=== PATIENT | female | born 2005 | race Caucasian/White ===

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

== ENCOUNTER 2025-03-16 14:10 | Outpatient (OUT) | payer BC, SELFPAY ==
--- OUTSIDE RECORDS SUMMARY | 2024-08-25 05:35 | XMS_ITS ---
Author Organization [facility] in [place] Address [address] [place] [address] Care Team Providers Care Forest Resource Specialist Name Role Phone Siobhan Louis Primary Care Provider REASON FOR VISIT Mail order scripts Medications Medication SIG (Take, Route, Frequency, Duration) Notes Start Date End Date Status Levothyroxine Sodium 50 MCG TAKE 1 TABLE T BY MOUTH EVERY DAY IN THE MORNING ON EMPTY STOMACH FOR 30 DAYS Orally Once a day for 90 days Active Venlafaxine HCl 37.5 MG TAKE 1 TABLET BY MOUTH EVERY DAY WITH FOOD for 90 days Active hydrOXYzine Pamoate 25 MG 1 capsule as n eeded Orally Twice a day for 90 days Active Encounters Encounter Location Date Provider Diagnosis [facility] [address] [place] [address] 08/25/2024 Siobhan Louis Anxiety disorder, unspecified F41.9 and Hypothyroid E03.9 Assessments Encounter Date Diagnosis (ICD Code) Assessment Notes Treatment Notes Treatment Clinical Notes Section Notes 08/25/2024 Anxiety disorder, unspecified (ICD-10 - F41.9) 08/25/2024 Hypothyroid (ICD-10 - E03.9) Plan Of Treatment Medication Medication Name Sig Start Date Stop Date Notes Levothyroxine Sodium 50 MCG TAKE 1 TABLE T BY MOUTH EVERY DAY IN THE MORNING ON EMPTY STOMACH FOR 30 DAYS Orally Once a day for 90 days Venlafaxine HCl 37.5 MG TAKE 1 TABLET BY MOUTH EVERY DAY WITH FOOD for 90 days hydrOXYzine Pamoate 25 MG 1 capsule as n eeded Orally Twice a day for 90 days Progress Notes * Nate BOSTONey LDOB: [birth year] (19 yo F)Acc No.[id number]:08/25/2024 Patient: Samina HUITRON :2005 A ge:19 Y S ex:Female Address:[address] [place] [id number] * Refills Refill Venlafaxine HCl Tablet, 37.5 MG, 90, TAKE 1 TABLET BY MOUTH EVERY DAY WITH FOOD, 90 days, Refills=3 Refill hydrOXYzine Pamoate Capsule, 25 MG, Orally, 180 Capsule, 1 capsule as needed, Twice a day, 90 days, Refills=0 Refill Levothyroxine Sodium Tablet, 50 MCG, Orally, 90, TAKE 1 TABLET BY MOUTH EVERY DAY IN THE MORNING ON EMPTY STOMACH FOR 30 DAYS, Once a day, 90 days, Refills=3 * true * Date: Generated for Gwen dow/Margaux/Deanneitting on: 0 03/16/2025 02:12 PM EDT
--- OUTSIDE RECORDS SUMMARY | 2024-09-14 04:58 | XMS_ITS ---
Author Organization [facility] [place] Address [address] [place] [address] Care Team Providers Care Environmental Consultant Name Role Phone Siobhan Louis Primary Care Provider REASON FOR VISIT lab results Encounters Encounter Location Date Provider Diagnosis [facility] [address] [place] [address] 09/14/2024 Siobhan Louis Plan Of Treatment No Information Progress Notes * Samina WALKER LDOB: [birth year] (19 yo F)Acc No.[id number]:09/14/2024 Patient: Linda SILDavidSamina :2005 A ge:19 Y S ex:Female Address:[address] [place] [id number] * true * Date: Generated for Printi ng/Faxing/eTransmitting on: 0 03/16/2025 02:12 PM EDT
--- OUTSIDE RECORDS SUMMARY | 2025-03-10 09:00 | XMS_ITS ---
Author Organization [facility] [place] Address [address] [place] [address] Care Team Providers Care Bioinformatics Assistant Name Role Phone Siobhan Louis Primary Care Provider [phone] Allergies No Known Allergies REASON FOR VISIT Presents to office alone. Would like labs ordered and wants to review meds, c/o feeling tired and dizzy off and on. Feeling agitated lately Medications Medication SIG (Take, Route, Frequency, Duration) Notes Start Date End Date Status hydrOXYzine Pamoate 25 MG TAKE 1 CAPSULE BY MOUTH NEEDED TWICE DAILY for 90 Active Levothyroxine Sodium 50 MCG TAKE 1 TABLET BY MOUTH EVERY DAY IN THE MORNING ON EMPTY STOMACH FOR 30 DAYS Orally Once a day for 90 days Active Semaglutide-Weight Management 0.25 MG/0.5ML 0.5 mL Subcutaneous Active Venlafaxine HCl 75 MG TAKE 1 TABLET BY M OUTH EVERY DAY WITH FOOD for 90 days Active Vitamin D3 50 MCG (1999 UT) 1 capsule Orally Once a day for 30 days 11/24/2023 Not-Taking Social History Tobacco Use: Social History Observation Description Date Details (start date - stop date) Never Smoker NA - NA Tobacco Use/Smoking Question Answer Notes Patient is a nonsmoker AUDIT-C (Standard) Question Answer Notes Did you have a drink containing alcohol in the p ast year? No Points 0 Interpretation Negative Problems Problem Type SNOMED Code ICD Code Onset Dates Problem Status W/U Status Risk Notes Problem Mixed anxiety and depressive disorder (412897291) Anxiety and depression (F41.8) Active confirmed Vital Signs Weight 197.6 lbs 03/10/2025 Height 66 in 03/10/2025 Blood pressure systolic 122 mm Hg 03/10/20 25 Blood pressure diastolic 70 mm Hg 025 BMI 31.89 kg/m2 03/10/2025 BMI Percentile 95.33 % 03/10/2025 Encounters Encounter Location Date Provider [facility] [address] [place] [address] 03/10/2025 Siobhan Louis Wellness examination Z00.00 and Anxiety and depression F41.8 Assessments Encounter Date Diagnosis (ICD Code) Assessment Notes Treatment Notes Treatment Clinical Notes Section Notes 03/10/2025 Wellness examination (ICD-10 - Z00.00) 03/10/2025 Anxiety and depression (ICD-10 - F41.8) increase dose venlafaxine Plan Of Treatment Medication Medication Name Sig Start Date Stop Date Notes Venlafaxine HCl 75 MG TAKE 1 TABLET BY M OUTH EVERY DAY WITH FOOD for 90 days Treatment Notes Assessment Notes Anxiety and depression increase dose carlene lafaxine Pending Test Test Name Order Date HEMOGLOBIN A1C (GLYCO) 03/10/2025 IRON, TOTAL 03/10/2025 LIPID PANEL (CHOL/TRIG/HDL/LDL) 03/10/20 25 VITAMIN D, 25 LEVEL (TOTAL) 03/10/2025 Insulin Level 03/10/2025 THYROID PANEL (T4/TSH/FREE T3) CMP (COMP MET CANTU) w/eGFR CKD-EPI 2024 CBC WITH DIFF 03/10/2025 Next Appt Details Follow Up: prn, Reason: Progress Notes * Samina BOSTON LDOB: [birth year] (19 yo F)Acc No.[id number]:03/10/2025 Progress Note Patient: Samina HUITRON Provider: Sudha Louis ([facility]), LIME KILN AND RECAUSTICIZING OPERATOR :2005 A ge:19 Y S ex:Female Date:03/10/2025 Address:[address] [place], [place] [id number] Check In:01:00 PM ESTCheck O ut:01:17 PM EST Subjective: * Chief Complaints: * 1 . Presents to office alone. Would like labs ordered and wants to review meds. 2. c/o feeling tired and dizzy off and on. Feeling agitated lately. 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 * ROS: G eneral/Constitutional: Patient complaining of m ore agitated with mood. F atigue a dmits. F ever d enies. H eadache d enies. W eight loss d enies. O phthalmologic: Discharge d enies. E ye Pain d enies. I tching and redness d enies. E NT: Nasal discharge d enies. N diana congestion d enies.?Sore throat d enies. C ardiovascular: Chest tightness/ heavy pressure d enies. R apid heart rate d enies. S welling of extremities d enies. C hest pain d enies. ? R espiratory: Productive cough d enies. C hest pain d enies. C ough d enies. S hortness of breath d enies. W heezing d enies. ? G astrointestinal: Abdominal pain d enies. C onstipation d enies. D ecreased appetite d enies. D iarrhea d enies. N ausea d enies. V omiting?denies. G enitourinary: Urinary incontinence d enies. P ainful urination d enies. M usculoskeletal: Back pain d enies. N alex pain d enies. M uscle aches d enies. S kin: Rash d enies. S kin lesion(s) d enies. ? * Active Problem List G47.00 Insomnia, unspecifie d Modified On:03/13/2023U Status:confirmed F32.A Depression, unspecif ied Modified On:03/13/2023U Status:confirmed F41.9 Anxiety disorder, un specified Modified On:03/13/2023U Status:confirmed Z23 Encounter for immuni zation Modified On:03/17/2023/U Status:confirmed E55.9 Vitamin D deficiency Modified On:11/24/2023/U Status:confirmed E16.1 Hyperinsulinemia Modified On:11/25/2023W/U Status:confirmed E03.9 Hypothyroid Modified On:12/19/2023W/U Status:confirmed F41.8 Anxiety and depressi on Modified On:03/10/2025W/U Status:confirmed * Medical History: D epression, Anxiety, Insomnia. * Surgical History: A CL reconstruction- left side . * Hospitalization/Major Diagno stic Procedure: d enies . * Family History: F ather: alive, hypertension, diagnosed with Unspecified essential hypertension. M other: alive. S ister(s): alive, ADHD, Anxiety, Depression. 1 sister(s) . . * Social History: T obacco Use: T obacco Use/Smoking P atient is a n onsmoker D rug/Alcohol: A CYNDEE-C (Standard) D id you have a drink containing alcohol in the past year? N o P oints 0 I nterpretation N egative * Medications: T aking hydrOXYzine Pamoate 25 MG Capsule TAKE 1 CAPSULE BY MOUTH NEEDED TWICE DAILY , Taking Levothyroxine Sodium 50 MCG Tablet TAKE 1 TABLET BY MOUTH EVERY DAY IN THE MORNING ON EMPTY STOMACH FOR 30 DAYS Orally Once a day , Taking Semaglutide- Weight Management 0.25 MG/0.5ML Solution Auto-injector 0.5 mL Subcutaneous , Taking Venlafaxine HCl 37.5 MG Tablet TAKE 1 TABLET BY MOUTH EVERY DAY WITH FOOD , Not-Taking/PRN Vitamin D3 50 MCG (2000 UT) Capsule 1 capsule Orally Once a day , Medication List reviewed and reconciled with the patient * Allergies: N .K.D.A. Objective: * Vitals: W t:197.6lbs, Ht: 66 in, BP:122/70mm Hg, BMI:31.89Index, Ht-cm: 167.64 cm, Wt-k.63 kg, Wt %: 97.17 %, BMI %: 95.33 %, Ht %: 74.82 %. * Examination: G eneral Examinations: GENERAL APPEARANCE: a lert and oriented, i n no acute distress. EYES: c onjunctiva normal, sclera non-icteric. NOSE: n ormal external appearance. LUNGS: c lear anteriorly and posteriorly. CARDIO: r egular rate and rhythm, S1, S2 normal. ABDOMEN: s oft, nontender. MUSCULOSKELETAL: G ait and station normal. SKIN: w arm and dry. Assessment: * Assessment: 1. W ellness examination - Z00.00 (Primary) 2 . A nxiety and depression - F41.8 Plan: * Treatment: 2. A nxiety and depression Refill Venlafaxine HCl Tablet, 75 MG, TAKE 1 TABLET BY MOUTH EVERY DAY WITH FOOD, 90 days, 90, Refills 3. Notes: increase dose venlafaxine * Preventive Medicine: Screenings/Counseling: B OK ACTION PLAN Above Normal BMI Follow-up D ietary management education, guidance, and counseling See treatment section of progress note for complete details of management plan. * Follow Up: p rn * * Electronically signed by Karli Louis , LAURA, ART THERAPIST.[employer] K[employer] AND RECAUSTICIZING OPERATOR.[id number] on 03/14/2025 at 10:17 AM EDT Sign off status: Completed Visit Status: C HK (Check Out) true * Provider: Sudha Louis ([facility]), L[employer] KIL[employer] AND RECAUSTICIZING OPERATOR Date: 03/10/2025 Generated for Gwen dow/Margaux/eTransmitting on: 03/16/2025 02:12 PM EDT History and Physical Notes * HPI (History of Present Illness) Category Sub-Category Detail Notes Category Not es General fatigue for last month or two dizzy when standing up has lost 50 lbs on semaglutide 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
--- OUTSIDE RECORDS SUMMARY | 2025-03-16 14:12 | XMS_ITS | Clinical Summary ---
Author Organization [facility] Address [address] [place] [address] Care Team Providers Care Manager Oracle Name Role Phone Siobhan Louis MD Unavailable [phone] Unallocated, Noms Provider Primary Care Provi teri Allergies No known active allergies Medications hydrOXYzine pamoate (Vistaril) 25 MG capsule TAKE 1 CAPSULE BY MOUTH TWICE A DAY NEEDED FOR 30 DAYS 04/26/2023 Active venlafaxine (Effexor) 37.5 MG tablet 1 (one) time each day at the same time. 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 Social History Tobacco Use Types Packs/Day Years Used Date Smoking Tobacco: Never Smokeless Tobacco: Never Tobacco Cessation:Counseling Given: Not Answered Alcohol Use Standard Drinks/Week Comments Never 0 (1 standard drink = 0.6 oz pur e alcohol) Comments Unknown Sex and Gender Information Value Date Recorded Sex Assigned at Female 05/12/2023 12:14 PM EDT Legal Sex Female 7:07 PM EDT Gender Identity Female 05/12/2023 12:14 PM EDT Sexual Orientation Straight 05/12/2023 12 :14 PM EDT Last Filed Vital Signs Vital Sign Reading Time Taken Comments Blood Pressure - - Pulse - - Temperature - - Respiratory Rate - - Oxygen Saturation - - Inhaled Oxygen Concentration - - Weight 107 kg (236 lb) 07/15/2023 3:03 PM EST Height 167.6 cm (5' 6 ) 07/15/2023 3:03 PM EST Body Mass Index 38.09 07/15/2023 3:03 PM EST Body Mass Index Percentile 98.59% 07/15/2023 3:0 3 PM EST Growth Chart: [facility] (Girls, 2- 20 Years) Plan of Treatment Health Maintenance Due Date Last Done Comments Influenza Vaccine (#1) 2025 1, 07/09/2010, 06/23/2007, Additional history exists Insurance [facility] Care Teams Manager Oracle Relationship Specialty Start Date End Date Unallocated, Noms Mellissa, [place] [address] PCP - General 05/28/23 Siobhan Louis MD [address] [place], [place] [id number] Referring Physician Family Medicine 03/05/23
--- OUTSIDE RECORDS SUMMARY | 2025-03-16 14:12 | XMS_ITS | Encounter Summary ---
Author Organization [facility] Address [address] [facility] [place] [address] Care Team Providers Care Pattern Lease Inspector Name Role Phone Siobhan Louis MD Unavailable [phone] Unallocated, Noms Provider Primary Care Provi teri Encounter Details Date Type Department Care Team (Late st Contact Info) Description 06/20/2023 Abstract [facility] [address] [place] [address] Alva Cornell NP Social History Tobacco Use Types Packs/Day Years Used Date Smoking Tobacco: Never Assessed Comments Unknown Sex and Gender Information Value Date Recorded Sex Assigned at Female 05/12/2023 12:14 PM EDT Legal Sex Female 7:07 PM EDT Gender Identity Female 05/12/2023 12:14 PM EDT Sexual Orientation Straight 05/12/2023 12 :14 PM EDT COVID-19 Exposure Response Date Recorded In the last 10 days, have yo u been in contact with someone who was confirmed or suspected to have Coronavirus/COVID-19? No / Unsure 06/16/2023 6:09 PM EST documented as of this encounter Plan of Treatment Not on file documented as of this encounter Visit Diagnoses Not on filedocumented in this encounter Care Teams Pattern Lease Inspector Relationship Specialty Start Date End Date Unallocated, Noms MD Mellissa [address] [place] [address] PCP - General 05/28/23 Siobhan Louis MD [address] [place] [address] Referring Physician Family Medicine 03/05/23 documented as of this encounter
--- OUTSIDE RECORDS SUMMARY | 2025-03-16 14:12 | XMS_ITS | Patient Health Record ---
Author Organization [facility] in [place] Address [address] [place] [address] Care Team Providers Care Ec Teacher Name Role Phone MissySiobhan Primary Care Provider Allergies No Known Allergies Results Component Value Reference Range Notes FREE T4 Reviewed date:09/14/2024 08:59:05 AM Interpretation: Performing Lab: Notes/Report: [facility] , Free T4 0.87 0.78-1.34 ng/dL Performing Lab: see note ML - [facility] LB TSH Reviewed date:09/15/2024 12:56:15 PM Interpretation: Performing Lab: Notes/Report: [facility] , Thyroid Stimulating Hormone 3.007 0.516-4.130 u IU/mL Performing Lab: see note ML - [facility] LB Reason For Referral No Information Medications Medication SIG (Take, Route, Frequency, Duration) [...] a day for 30 days 11/24/2023 Not-Taking Immunizations Vaccine Route Administration Date Status Comme nts DTaP (Infanrix) Unknown 07/09/2010 Administered DTP - historic Unknown 09/30/2006 Administered Engerix-B (Peds) Unknown 2005 Administered Engerix-B (Peds) Unknown 2005 Administered Engerix-B (Peds) Unknown 04/26/2006 Administered HIB, unspecified formulation Unknown 2005 Administered HIB, unspecified formulation Unknown 2005 Administered HIB, unspecified formulation Unknown 2005 Administered HIB, unspecified formulation Unknown 2006 Administered Meningococcal (Menactra) Unknown 04/09/2018 Administere d MenQuadfi 0.5mL Single Dose Vial IM Intramuscular 03/17/2023 Administered MMR Unknown 2006 Administered MMR Unknown 07/09/2010 Administered Pneumococcal (Prevnar 7) - historic Unknown 2005 Administered Pneumococcal (Prevnar 7) - historic Unknown 2005 Administered Pneumococcal (Prevnar 7) - historic Unknown 2005 Administered Polio Virus, IPV Unknown 04/26/2006 Administered Polio Virus, IPV Unknown 07/09/2010 Administered Tdap (Adacel) Unknown 04/09/2018 Administered Varicella Unknown 09/30/2006 Administered Social History Tobacco Use: Social History Observation Description Date Details (start date - stop date) Never Smoker NA - NA Tobacco Use/Smoking Question Answer Notes Patient is a nonsmoker Alcohol Screen (Audit-C) Question Answer Notes Did you have a drink containing alcohol in the p ast year? No Points 0 Interpretation Negative AUDIT-C (Standard) Question Answer Notes Did you have a drink containing alcohol in the p ast year? No Points 0 Interpretation Negative Problems Problem Type SNOMED Code ICD Code Onset Dates Problem Status W/U Status Risk Notes Problem [id number] Encounter for immunization (Z23) Active confirmed Problem 17237793 Anxiety disorder , unspecified (F41.9) Active confirmed Problem 230220411 Insomnia, unspecified (G47.00) Active confirmed Problem Hypothyroid (88507578) Hypothyroid (E03.9) Active confirmed Problem Vitamin D deficiency (64652350) Vitamin D deficiency (E55.9) Active confirmed Problem Hyperinsulinemia (99996120) Hyperinsulinemia (E16.1) Active confirmed Problem Mixed anxiety and depressive disorder (792287002) Anxiety and depression (F41.8) Active confirmed Problem 81648705 Depression, unspecified (F32.A) Active confirmed Vital Signs Blood pressure diastolic 70 mm Hg 03/10/2025 Height 66 in 03/10/2025 BMI Percentile 95.33 % 03/10/2025 Blood pressure systolic 122 mm Hg 03/10/2025 Weight 197.6 lbs 03/10/2025 BMI 31.89 kg/m2 03/10/2025 Encounters Encounter Location Date Provider Diagnosis [facility] [address] [place] [address] 04/28/2024 Siobhan Louis Wellness examination Z00.00 [facility] [place] [address] 08/16/2024 Siobhan Louis Hypothyroid E03.9 an d Anxiety disorder, unspecified F41.9 [address] [place] [facility] [place] [address] 03/10/2025 Siobhan Louis Wellness examination Z00.00 and Anxiety and depression F41.8 [facility] [address] [place] [address] 06/21/2024 Siobhan Louis Hypothyroid E03.9 [facility] [address] [place] [facility] [place] [address] 08/10/2024 Siobhan Louis [facility] [address] [place] [facility] [place] [address] 08/19/2024 Siobhan Louis Anxiety disorder, unspecified F41.9 [facility] [address] [place] [address] 08/25/2024 Siobhan Louis Anxiety disorder, unspecified F41.9 and Hypothyroid E03.9 [facility] [address] [place] [facility] [place] [address] 09/14/2024 Siobhan Louis Assessments Encounter Date Diagnosis (ICD Code) Assessment Notes Treatment Notes Treatment Clinical Notes Section Notes 04/28/2024 Wellness examination (ICD-10 - Z00.00) ROS done exam done will repeat thyroid labs 6m out mood stable 08/16/2024 Hypothyroid (ICD-10 - E03.9) 03/10/2025 Wellness examination (ICD-10 - Z00.00) 03/10/2025 Anxiety and depression (ICD-10 - F41.8) increase dose venlafaxine 06/21/2024 Hypothyroid (ICD-10 - E03.9) 08/19/2024 Anxiety disorder, unspecified (ICD-10 - F41.9) 08/25/2024 Anxiety disorder, unspecified (ICD-10 - F41.9) 08/25/2024 Hypothyroid (ICD-10 - E03.9) 08/16/2024 Anxiety disorder, unspecified (ICD-10 - F41.9) mood good on medication refill continue Plan Of Treatment Pending Test Test Name Order Date CMP (COMPLETE METABOLIC PANEL) 4 HEMOGLOBIN A1C (GLYCO) 11/21/2023 HEMOGLOBIN A1C (GLYCO) 03/10/2025 IRON, TOTAL 03/10/2025 IRON, TOTAL 11/21/2023 LIPID PANEL (CHOL/TRIG/HDL/LDL) 11/21/19 24 LIPID PANEL (CHOL/TRIG/HDL/LDL) 03/10/20 25 CBC WITH DIFF 11/21/2023 VITAMIN D, 25 LEVEL (TOTAL) 11/21/2023 VITAMIN D, 25 LEVEL (TOTAL) 03/10/2025 Insulin Level 03/10/2025 Insulin Level 11/21/2023 THYROID ANTIBODIES 11/24/2023 THYROID PROFILE WITH TSH 08/16/2024 THYROID PANEL (T4/TSH/FREE T3) 4 THYROID PANEL (T4/TSH/FREE T3) 5 THYROID PANEL (T4/TSH/FREE T3) 4 THYROID PANEL (T4/TSH/FREE T3) 4 CMP (COMP MET CANTU) w/eGFR CKD-EPI 2024 CBC WITH DIFF 03/10/2025 Insurance Providers Payer Name Payer Address Payer Phone Subscriber Number Group Number Insured Name Patient Relationship to Insured Coverage Start Date Coverage End Date [employer] PPO PLUS LOCAL PLAN [address] [place] [address] [id number] Aaron Samina Self - patient is the insured 8 Medical (General) History Medical History History ICD Code Depression F32.A Anxiety F41.9 Insomnia G47.00 Surgical History Surgery Date(Month/Year) ACL reconstruction- left side Hospitalization History Reason Date(Month/Year) denies
--- OUTSIDE RECORDS SUMMARY | 2025-03-16 14:35 | XMS_ITS | CCD ---
Author Organization [facility]iniSyor Care Team Providers Care 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 Name Role Phone SACHIN, DR HERNDON Attending [...] Referring Unavailable SERGIO PALACIOS Attending Unavailable RICKYLAUREN Referring Unavailable TERRY BADILLO [...] Attending Unavailable TERRY BADILLO T Attending Unavailable HOWARDLAUREN Referring Unavailable TERENCELLU Attending Unavailable SERGIO PALACIOS Attending Unavailable LAUREN [...] anterior cruciate ligament reconstruction Xavier García D.O. [facility] Radiology Study observation (narrative) [facility] Coding Summaryon 07-29-2023 Coding Summary HTMLBase 64 QbnkmxcfEMz4eSs+PGhlYWQ+ DG1XDHQrD48bdUWhdA0oN7GK TElOSywgQVBQTElOSyIgbmFt OO1bvIKgZRCi IC8+MH6wAGMeRihyxZKjo8M5 oOA6S74zah4oCBsiyYM1DCRz OsWnzzupb0umcUg5YNxdTyxi OyBt FVVjuD53FTG5iG99Kb69eVVc qTLbs8csxJp2NcIhIJKqEZV0 yOecXPbji3FpTRSqI91hdYUd c2U6 KWMntXzzgKMdLlOktNX0qS6s RAhiwlsgc4avmlfjYex1gp08 rZAlh8K9pAN4B4HwkrR0NHYh bGQg PhcseMTJwD8wugmox7nfevlg SlXaDZOoNPf7DOs4RALmwKxx UzFjIK64FYK8KFTvagUrJ5Xn LWFs bZksNfD3t8G2On5HA9URIint J6ZSTFRHTWmffFP+JO10co58 J3XhCglnYoq3PUIkWXS4hQB9 aD0n SHEiXEbip5O4ePZ0B8AbsnUw pt9ad4mfKQOzFIqkZ54wsXMu g1R3DZVazUF6ZRMbxIrwByFm aG93 Oyc+PFHhmPjpc2UgAvvxp3jh t8eghCz4VwqiVXYchuKuqQsh WXB0u1OyRp0bNDYmvYC4xMT3 aD0i DbZeJcK2TDrmM736WvCrsVRa NgqcT64eQ1PhaTN+PHRyPjx0 DCYisBajMI6qI6BrOIOpgzzu bGVm gTfvNG8gYXKbygixANFmlK2k OVWlW7h9FdAbHzE6NNpjN6Xh GIOmubifPn90tH2mXgKcNyA1 MGlu H2XrigH0AACbdOMbHPseXYW8 R69ie7G9BWLqIHNsNRL3xTZ8 cC0wwUpojxzfzXNkpNamkxUl dGlj THwxCOwwF343LOJmlOxiQbYz ZGluZyBEYXRlOiAgMTIvMjYv MjAyMzwvdGQ+TXOkKWZ4sElt PSAn xXHtVFgoNy0raMkpkAxwND0a GBUaibfaGGXlqE5gHAWpgNAc hJygHA7bEHWwjadui179ZwAo MHB0 SJLebVMcF1XgvV6nQbUrAJTx TAWrO9GmcGEeUCkrE905IZbk NhF0UCIizvWeL2NdAXUrlJkh OiB0 s0A6Xd8Yj8CmcqenT7LfaOQs YkLrNipxLGa7O4TsIaaqrLX+ JS89BUGqIL83BGe3HLK5wFzo PSdi AORzB1YzjU6tFjBhRTRiHRBa Oyc+PHRhYmxlIHdpZHRoPScx VKOoWgZxtOwnQO2iPm6jCXZc LWNv zXlfhPGpYnUfd1zmDNUsHCru TI6yvDwrM2AidTH0VUBie1j6 Xa27P45vI4UutEC+PGNvbCB3 aWR0 uH9jWzKbIsB0GUaaL017BfUi zLGuTffbt2pkm7ielZv5BkQ5 LQLsctHkdYjkZZS7r9JuDm30 Y29s IHdpZHRoPSIxNSUiIHZhbGln od6kjN7fFq7+NEOoyIY6kTN4 mT9bHrKmXdU7GKdzL541YqCm cCIv Udkus1foe7secGo3AgRvOHNi dlEuhJdhEBC0e1UxVc71E7Wl nTyrn6JuIdc5em54qIMww6H3 bGU9 H9FoVDYhhqmnsCRplBvuJS5o CXBksvccQUSzfI7uYCWzT4r3 HdGgDuP1LKflN2TnzsG8ADKx bGQg LNRueENQtH3otksju6dvkteh LzTxGOOcOHw6CWn4AMJhcIyk PqKdTTV8GeW5WDT0zAVdbJ7d bGln tjlgzT4xGqt+IBF6hKPucYTX MJ8cPteusMV+VQAmPWV2uWev SUlaTFBidQ3vXLAsD7g5TkOq LjA1 CTexS1NoqrL5MUCjzDQhSFLw eXKFtK6scpxml7yczsdpIcFe EWOgLHc3NVa6PMSphYtdTeCi ZWZ0 UqW5QSC5uDGzwF9veWhplvuh aS8tQhw+YybfkTfcSJG4WUb4 J8WcTvp7YSJghTwsMA6mrABk ZGlu Zm8pxNxikTbsAW6gHUCoeddi i033PdUkj6weEEHqhMMjPKio OZY9X40de7L1SEHoNMXfART6 dGV4 kG3joRqmjdanoXPbeHfeeyZk vXjwVYkqIPdtR035YGMshRoy YcLkUZr0B4PzZcw6TFUqgZak ZT0n jCMeEAbvZy0ewGtbhAloRQ7e AYGlidjfd671JcEcc5izAHGk oCVmITkeUSJ4Z65ju0F0MMTe MDAw NXH6cAW3fV2ilXdmzrjypURf tQwuytDbaByzNBccSZqyM702 RMQxjStsFxPstQh0V2QtAci0 ZCBz iNhcYU7mmDCfGFkqUi0fdXek pFjeWB6hZVGewufvs678DrId k9uiWQMmrFRsREemFAF4Q27v b3I6 RDThAQNeODA1oFJ7oU3fnXlo bjogbGVmdDsgdmVydGljYWwt RIsuG708BEVttHemUsRldLvm bnQg PLoxQMf2S0ChUneslFD+PC90 FATgGF75zVRvdSVin3okkAs6 FaHrXNMySSV9qBfvCUmcp3Vu ZXIt A89snSHqe0E6TPDtiKvldDZv CyZqyBX0jE4sZJmwltgff4ga dkgbNchuo6hzyt51mB40F41w IHdp QQIhDCTvKSRiAGSmgTulxc1n gJ6uAk8+DVVjtEA1zMS9cF7r OPCqNnD7EQzxK707EbEvjKId Pjxj k4ilq9ysdNa9GzJ3YVMwhoTk xCdkSGT7n7FaKh09Y53hLPtv QHRwJEVpRCDhIGJztUtevy8v dG9w Ii8+DFSvdPP9vUX6hU4cApWy MlO9CQyoT744ZiInaORaAnll A76gT4XoeHL+WYKmIhx5XUJy dHls EP1avTOnAXboLj3kIRA5FmDt ArYxZZwtU6NmPQDqlhyciupa hTT6NGSiCNUskL04Tj5duOpr MTBw dGJFxI2luukxc9krtviwBxAd RJXcKYg1AOx7IKFgyEqeGbXi VNE2UpX3GWM3nREvrD4ubEjj bjog oO0eX4SaIXBqnbvgJs69kB8o HgBqEwM5KQbtWgj+TUlMTEVS FTJXLABHFNWTJN14A5OvDef4 ZCBz uQjlJG8nbXMvCUceZj1ytUhl gLitZM3uYGHerqldUXDcrO4f CYMqbUUxuIgcDZ7sMICsetbp b250 ZuLfMYO1MYFgbHGwN4JloM3j KsGzNTYfZYIyV5WsmMJmEEdk R214LQbjIdR8RLAkwyCmD8Qy LWFs tKmaExU0w6M2Hj8uTC6xJC4l ZDJ6GW48SC80nHSyf8K2qZR8 T0FpNECnpzfagzgpkTI2SCRl MDUw yO07bJKgCZdtBl2jm5Q8h286 AMOtYUVqqN00Xo5evLtqZAEx fYPLvA1ovthzr9ejbwipTkLf MDAw VZk2FKe0ERPihLcgYvHfVGA4 QiQ6SFV3vNVqbI0hqRztjccs oE2jGra+POwzRMHbszC9R0Cn Pjx0 HSRtlFzqXB7qoFBiFNviLh9q vVlsjOogNR3yIOVegwtlLIJc kF2iGOPymIWknKphBW4wVDUj bjtm t106NbTgHJD1STKvaVMrN9Jm cD2tHrOuAHWzGGDfI2HehPHr RCnmP533JGmpPdG7TYBdafLz Y2Fs FLIroKkmUgV7a5V0Ko5SVE7S IYZ0D2MgJru7KTIapPyhNZ2l hEPsDTtaYa2bcSdvwMckET3b NTBp atnnHQFstB7sWGNkyGAkuQbv SP8gUXMsecbcn827QiLlXZW5 HSEcuGQrO3HvyL0pUuVyLYMg MDAw I6BpxPGxREhfV776PAxpCpP5 BXNmonRzJ6DuMKPnzInkZaX3 y9P5Sq2GPPitG9PjH5NtkJzg dGQ+ GG75xx05R6PiMxzlFmk9JGGh IAB5oID8mL6lDCJwPLtpj5V7 cZY4O4MfmsKtko7uv6igJCOs ZTog S52heLYrg6V5MBTinRV1TGCr vDejLwDzeG49Amm+PGNvbGdy l3SbWrmjz1kzy4tqfEd5CbRf JSIg exSqzSwkXAP0k7DbEv47C89k IHdpZHRoPSIzMCUiIHZhbGln ao0qoI7lZa1+MBLvvTL3qUA2 aD0i ZpVfXgB5ODlaX931AgYxnKWw Ejjem6gdt6rotMp7RsJmFNYd gaMspYytERS6u6LjDr78D9Pa bGdy h3RkRuw0kw79vUDue7Y9bSP9 T8ZgIAXibvfuhPFecLyrKH4a WMXxrnmlVVIyfO5mCCUeM4o0 OiAw GsT6QFsvY2EwnlP1EEDahAIc UBQhoIUDbE8zcerwj4vmgulj JuUrXVVgEFf1EWg3LIWjhBln OiBs SUI9HnU9SKW2sOIkaL5hpReu nuummJ8uTqs+ACd0h1lmoEDv GB9ryRG9QX53EZ36gYCoc2N2 bGU9 I7YmTHPuuybqnzwlwSU9SQJy BYWkgX91Rh0shRwnBz0fHMXx BJQ2JXJorAJwH3VdxF4ePaZx MDAw JRIkB8MfgNBeBAjyY322FGes IpT6KFDjrjRnN9RqQXFufUui FgW8e5E3Fn1GNB87TN76EO22 dGQg e2P4dKP9X9PaGFUlatnvelel pET0CCSoNHJgeT52Qi6nbShj Dy1wOUJjZHJ6DSSvxNYyR2Me bG9y UqZcYUJaLXDyU9SvqZYhNOls G325EAmoZvN0VKYwysYoV8Js HWFvyMhpJaA8n4U3Dv5URr40 PC90 PE43mKLsw9U4qCS1E7WfSQMh vqrmcfaxtPN9SGGyIDVufO29 Ll2wiDpuIj4wQGDgIUF0RHOj bWVz N8KlmW6nXmBwAWDxDWYqD0Ga zLKjZUufF649OWusMjD0WGTd pvKsQ9SyAYGkrDrdOiT9i7A8 Jz5Q YOvtvgy7V9KfFhgcoVX+PC90 XEJnSG58eIVhrLVyq1svbBt5 ApOrMEWaZQT0yHjoYBcip1Yb ZXIt Y29 (more content not included)... [facility] Anesthesia Noteon 07-22-2023 Anesthesia Note [id number] TIFF [facility] Consent Formson 07-22-2023 Consent Forms [id number] IFF [facility] Discharge Instructionson Discharge Instructions [id number] IFF [facility] Telemetry Stripson Telemetry Strips [id number]#[id number] TIFF [facility] Anesthesia Noteon 07-21-2023 Anesthesia Note Patient: ADORE BOSTON Age: 18 years Sex: FEMALE : 2005 Associated Diagnoses: None Author: Kendell Delacruz MD Postoperative Information Post Operative Note: Operative Day. Anesthetic utilized: General. Health Status Allergies: Allergic Reactions (All) No known allergies Problem list (past medical history): All Problems Anxiety / SNOMED CT 60648311 / Confirmed Depression / SNOMED CT 35904591 / Confirmed Physical Examination VS/Measurements Vital Signs [...] on: 07/21/2023 12:25 EST] Kendell Delacruz MD [facility] Anesthesia Note Patient: ADORE BOSTON Age: 18 [...] history): All Problems Anxiety / SNOMED CT 03316899 / Confirmed Depression / SNOMED CT 81921936 / Confirmed Histories Family History: History is [...] Adequate opening, Tongue ( Within normal limits, [place], Moist ), Teeth ( Within normal limits ), Palate ( Within normal limits ). Neck: Supple, Non-tender, Full range of motion. Respiratory: Lungs are clear to auscultation, Respirations are non-labored, Breath sounds are equal, Symmetrical chest wall expansion. Cardiovascular: Normal rate, Regular rhythm, No murmur, No gallop. Neurologic: Alert, Oriented. Review / Management Laboratory Results Plan [place] Society of Anesthesiologists#(ASA) physical status classification: Class [...] on: 07/21/2023 08:55 EST] Kendell Delacruz MD [facility] Inpatient Patient Summaryon 07-21-2023 [place]patient [place] [address] Patient Discharge Instructions Name: JIMMY BOSTON : 2005 Patient Address: [address] [place] [address] Primary Care Provider: Name: Siobhan Louis After you are discharged if you find you have any questions, please, call [phone] ext [phone] to speak to a nurse. Discharge Diagnosis: [...] problems; contact the [facility] 24/02 Crisis Hotline -Text 4HPHB ob 704152. If you received any narcotics, sedation, or [...] business decisions or sign any legal documents [facility] would like to thank you for allowing us to assist you with your healthcare needs. The following includes patient education materials and information regarding your injury/illness. JIMMY BOSTON has been given the following list of follow-up instructions, prescriptions, and patient education materials: Follow-up Instructions With: Address: When: Lauren García [address] [place] [address], [address] [place] [address] Business (1) 07/29/2023 1:30 PM Medications During [...] or concerns, please call the office at [phone]. Viruses or Bacteria What?s got you sick? [...] When Antibiot (more content not included)... [facility]-21-2023 MAGR Intraoperative Record MAGR Intra-Op Record Summary Primary Physician: Lauren García DO Finalized Date/Time: 07/21/23 13:00:06 Pt. Name: JIMMY BOSTON.O.B./Sex: 2005 FEMALE Med Rec #: [id number] Physician: Lauren García DO Financial #: [id number] Pt. Type: D Room/Bed: / Admit/Disch: 07/21/23 [...] Role Performed Surgeon - Primary Anesthesiologist of Ase Master Mechanic Record Time In 07/21/23 09:25:00 07/21/23 09:09:00 [...] Lauren M CSFA Role Performed Scrub Personnel Board Liner Operator Time In 07/21/23 09:09:00 07/21/23 09:09:00 Time [...] Cruciate(Left) Counts Verification (more content not included)... [facility] MAGR Intraoperative Record MAGR Intra-Op Record Summary Primary Physician: Finalized Date/Time: 07/21/23 12:06:26 Pt. Name: LUDYJIMMY CESAR /Sex: 2005 FEMALE Med Rec #: [id number] Physician: Lauren García DO Financial #: [id number] Pt. Type: D Room/Bed: / Admit/Disch: 07/21/23 [...] Draper, Lora RN Role Performed Anesthesiologist of Ase Master Mechanic Ase Master Mechanic Record Time In 07/21/23 08:30:00 07/21/23 08:30:00 [...] By De (more content not included)... [facility] Recordon 3 MAGR PACU Record MAGR PACU Record [facility] Primary Physician: Lauren García DO Finalized Date/Time: 07/21/23 12:48:56 Pt. Name: JIMMY BOSTONO.B./Sex: 2005 FEMALE Med Rec #: [id number] Physician: Lauren García DO Financial #: [id number] Pt. Type: D Room/Bed: / Admit/Disch: 07/21/23 06:46:30 - Institution: PACU Case Times MAGR Entry 1 In PACU I 07/21/23 11:53:00 Discharge from PACU 07/21/23 12:48:00 I Last Modified By: Damari Gómez RN 07/21/23 12:48:50 Finalized By: Damari Gómez RN Document Signatures Signed By: Damari Gómez RN 07/21/23 12:48 [facility] MAGR Postoperative Recordon 07-21-2023 MAGR Postoperative Record MAGR Phase II Record Summary Primary Physician: Lauren García DO Finalized Date/Time: 07/21/23 14:41:42 Pt. Name: JIMMY BOSTON/Sex: 2005 FEMALE Med Rec #: [id number] Physician: Lauren García DO Financial #: [id number] Pt. Type: D Room/Bed: / Admit/Disch: 07/21/23 [...] Signed By: Andriy Gayle RN 07/21/23 14:41 [facility] MAGR Preoperative Recordon 1 09-21-2022 MAGR Preoperative Record MAGR Pre-Op Record Summary Primary Physician: Lauren García DO Finalized Date/Time: 07/21/23 09:39:10 Pt. Name: JIMMY BOSTON/Sex: 2005 FEMALE Med Rec #: [id number] Physician: Lauren García DO Financial #: [id number] Pt. Type: D Room/Bed: / Admit/Disch: 07/21/23 [...] Yang RN Document Signatures Signed By: Joselin aYng RN 07/21/23 09:39 Normal [facility] Operative Report - Surgeon/P cammy [...] on: 07/21/2023 12:00 EST] Lauren García DO [facility] Patient Handouton 07-21-[address] GARCÍA'S [...] or concerns, please call the office at [phone]. [facility] Test Urine 1on U Preg Negative [facility] Comment on above: Performed By: #### [id number] ####[facility] (DEFAULT)[address] [place] [address] U Preg Internal Control Pass [facility] Comment on above: Performed By: #### [id number] ####[facility] (DEFAULT)[address] [place] [address] Progress Note - Nurseon 07-04 Progress Note - Nurse Spoke with pt and informed her to be here at 7am and NPO after MN, she verbalizes understanding. [Electronically Signed on: 07/18/2023 13:51 EST] Benito Salas RN [Verified on: 07/18/2023 13:51 EST] Benito Salas RN [facility] Auth for Release of Medical Recordson 04-20-2021 Auth for Release of Medical Records [id number]: 127 Normal [facility] Covid-19 PCR (CVDTBH)on 03-04 SARS-CoV-2 (COVID-19) RNA YELITZA+probe Ql (Unsp spec) Not detected Normal NOT DETECTED [facility] Comment on above: Result Comment: This test is not yet approved or cleared by the [place] FDA. When there are no FDA-approved or cleared tests available, and other criteria are met, FDA can make tests available under an emergency access mechanism called an Emergency Use Authorization (EUA). The EUA for this test is supported by the [employer] Operator of Health and Human Service's (HHS's) declaration [...] Performed By: #### C JH BANGS #### [facility] [address] [place] [address] Jeremie Vann SYMPTOMATIC COVID-19 ANTIGEN on 03-21-2021 EUA Statement SEE BELOW Normal [facility] Comment on above: Result Comment: This test [...] Performed By: #### C JH BANGS #### [facility] [address] [place] [address] Jeremie Vann SARS-CoV-2 (COVID-19) RNA YELITZA+probe Ql (Unsp spec) Negative Normal NEGATIVE [facility] Comment on above: Result Comment: CONF IRMATION BY PCR PENDING PER CDC GUIDELINES/ SYMPTOMATIC PATIENT. Performed By: #### C BETI, CVDCLINTS #### [facility] [address] [place] [address] Jeremie Vann Vital Signs Date Time Vital Sign Value Performing Clinician Faci lity 10-30-2023 16:42-0400 Body height 165.1 cm [facility] 10-30-2023 16:42-0400 Body mass index (BMI) [Percentile] Per age and sex 98.8 % [facility] 10-30-2023 16:42-0400 Body mass index (BMI) [Ratio] 40.6 kg/m2 [facility] 10-30-2023 16:42-0400 Body temperature 98.7 [degF] [facility] 10-30-2023 16:42-0400 Body weight 110.67 kg [facility] 10-30-2023 16:42-0400 Heart rate 112 /min [facility] 10-30-2023 16:42-0400 Respiratory rate 18 /min [facility] 10-30-2023 16:42-0400 SaO2% (BldA) [Mass fraction] 98 % [facility] Encounters Encounter Date Encounter Type Care Provider Facility Start: 06-29-2024 End: 06-29-2024 Bamboo flowsheet Lauren [...] Start: 10-30-2023 End: 10-30-2023 Patient encounter procedure [facility] [place] Work Phone: Start: 10-30-2023 End: 10-30-2023 ambulatory LIBERTAD JACKSON [facility] Work Phone: Start: 10-22-2023 End: 10-22-2023 ambulatory SERGIO PALACIOS Not Available Start: 10-20-2023 End: 10-20-2023 ambulatory LIBERTAD JACKSON Not Available Start: 10-16-2023 End: 10-16-2023 ambulatory SERGIO PALACIOS Not Available Start: 10-15-2023 End: 10-15-2023 ambulatory Lauren Harpston Facility:[facility] Start: 10-13-2023 End: 10-13-2023 ambulatory [...] Start: 09-18-2023 End: 09-18-2023 ambulatory Libertad Ceey BUSH REGENERATOR [facility] Comment on above: Acute pain of left k nee (Primary Dx); S/P ACL reconstruction Start: 09-18-2023 Bamboo flowsheet Libertad Ceey BUSH REGENERATOR [facility] Start: 09-18-2023 Bamboo flowsheet Libertad Ceey BUSH REGENERATOR [facility] Start: 09-15-2023 End: 09-16-2023 [...] Start: 09-11-2023 End: 09-11-2023 ambulatory Sergio Palacios BUSH REGENERATOR [facility] Comment on above: S/P ACL reconstructi on (Primary Dx); Acute pain of left knee; Sprain of anterior cruciate ligament of left knee, initial encounter; Patellar instability of left knee Start: 09-08-2023 End: 09-08-2023 ambulatory LIBERTAD KELBLEY Not Available Start: 09-05-2023 End: 09-05-2023 ambulatory Libertad Jackson BUSH REGENERATOR [facility] Comment on above: S/P ACL reconstructi on (Primary Dx); Acute pain of left knee; Sprain of anterior cruciate ligament of left knee, initial encounter; Patellar instability of left knee Start: 09-05-2023 Bamboo flowsheet Libertad Jackson BUSH REGENERATOR [facility] Start: 09-05-2023 Bamboo flowsheet Libertad Jackson BUSH REGENERATOR [facility] Start: 09-02-2023 End: 09-02-2023 ambulatory LULConor LOPEZ Not Available Start: 08-28-2023 End: 08-28-2023 ambulatory TERRY BADILLO Not Available Start: 08-26-2023 End: 08-26-2023 ambulatory LAUREN GARCÍA Not Available Start: 07-29-2023 End: 07-29-2023 ambulatory LAUREN GARCÍA Not Available Start: 07-21-2023 End: 07-21-2023 ambulatory Lauren García Facility:[facility] Start: 07-15-2023 End: 07-15-2023 ambulatory LAUREN GARCÍA Not Available Start: 03-21-2021 End: 03-21-[address] YANICK STEPHENSON Facility: Procedures Date Procedure Procedure Detail Performing Clinician Start: 06-29-2024 Radiologic examinati on knee 1/2 views Lauren García DO Work Phone: History of operative procedure on knee S/P ACL reconstruction Libertad Jackson BUSH REGENERATOR History of operative procedure on knee S/P ACL reconstruction Sergio Palacios BUSH REGENERATOR History of operative procedure on knee S/P ACL reconstruction Terry Badillo PT Work Phone: History of operative procedure on knee S/P ACL reconstruction Libertad Jackson BUSH REGENERATOR History of operative procedure on knee S/P ACL reconstruction Lauren García DO Work Phone: Plan of Treatment Date Care Activity Detail Author Start: 04-04-2024 Influenza vaccination Influenza Vacc ine (#1) [facility] Start: 10-08-2023 End: 10-08-2023 ambulatory 10/08/2023 3:00 PM EST Treatment [facility] [address] [place] [address] Terry Badillo, PT [address] [place] [address] [facility] Start: 10-07-2023 End: 10-07-2023 Patient encounter procedure 10/07/2023 2:15 PM EST Office Visit [facility] [address] [place] [address] Lauren García, DO [address] [place] [address] [facility] Start: 10-06-2023 End: 10-06-2023 ambulatory [facility] Start: 10-01-2023 End: 10-01-2023 ambulatory 10/01/2023 3:30 PM EST Treatment [facility] [address] [place] [address] Terry Badillo, PT [address] [place] [address] [facility] Start: 09-29-2023 End: 09-29-2023 ambulatory 09/29/2023 4:00 PM EST Treatment [facility] [address] [place] [address] Libertad Jackson, BUSH REGENERATOR Internal derangement of left knee [facility] Comment on above: Internal derangement of left knee Start: 09-25-2023 End: 09-25-2023 ambulatory 09/25/2023 3:00 PM EST Treatment [facility] [address] [place] [address] Libertad Jackson, BUSH REGENERATOR [facility] Start: 09-23-2023 End: 09-23-2023 ambulatory 09/23/2023 3:00 PM EST Treatment [facility] [address] [place] [address] Lul Lopez, BUSH REGENERATOR [facility] Start: 09-18-2023 End: 09-18-2023 ambulatory [facility] Comment on above: Arrived Start: 09-15-2023 End: 09-15-2023 ambulatory [facility] Comment on above: Arrived Start: 09-11-2023 End: 09-11-2023 ambulatory 09/11/2023 3:30 PM EST Treatment [facility] [address] [facility] [address] [place] [address] Sergio Palacios BUSH REGENERATOR [facility] Start: 09-08-2023 End: 09-08-2023 ambulatory 09/08/2023 4:00 PM EST Treatment [facility] [address] [facility] [address] [place] [address] Libertad Jackson PTA [facility] Start: 09-05-2023 End: 09-05-2023 ambulatory 09/05/2023 2:30 PM EST Treatment [facility] [address] [facility] [address] [place] [address] Libertad Jackson PTA S/P ACL reconstruction (Primary [...] Immunizations Immunization Date Immunization Notes Care Provider [facility] 07-15-2011 influenza virus vacc ine, unspecified formulation Lauren García DO Work Phone: [facility] Payers Date Payer Category Payer [facility] [id number] 2017 Unknown BCBS BCBS xxxxxx [id number] 2017-Present [phone] [address] [place] [address] [id number]. 2.7.3.307602.315 2005 Unknown [id number] 2.16.840.1.454661.3.579. 2.718 2005 Unknown [id number] 2.16.840.1.865637.3.579. 2.718 2005 Unknown [id number] 2.16.840.1.066759.3.579. 2.125 2005 Unknown [id number] 2.16.840.1.759375.3.579. 2.1258 2005 Unknown [id number] 2.16.840.1.882675.3.579. 2.1258 2005 Unknown [id number] 2.16.840.1.690357.3.579. 2.9 2005 Unknown [id number] 2.16.840.1.728097.3.579. 2.1258 2005 Unknown [id number] 2.16.840.1.834129.3.579. 2.125 2005 Unknown [id number] 2.16.840.1.800249.3.579. 2.1258 2005 Unknown [id number] 2.16.840.1.790408.3.579. 2.1258 2005 Unknown [id number] 2.16.840.1.240912.3.579. 2.125 2005 Unknown [id number] 2.16.840.1.809449.3.579. 2.1259 2005 Unknown [id number] 2.16.840.1.482454.3.579. 2.1258 2005 Unknown [id number] 2.16.840.1.299416.3.579. 2.1258 2005 Unknown [id number] 2.16.840.1.255648.3.579. 2.1258 2005 Unknown [id number] 2.16.840.1.073724.3.579. 2.1258 2005 Unknown [id number] 2.16.840.1.804059.3.579. 2.1258 2005 Unknown [id number] 2.16.840.1.818400.3.579. 2.1258 2005 Unknown [id number] 2.16.840.1.471675.3.579. 2.1258 2005 Unknown [id number] 2.16.840.1.183112.3.579. 2.1258 2005 Unknown [id number] 2.16.840.1.907323.3.579. 2.1258 2005 Unknown [id number] 2.16.840.1.801471.3.579. 2.1258 2005 Unknown [id number] 2.16.840.1.258403.3.579. 2.1258 2005 Unknown [id number] 2.16.840.1.670326.3.579. 2.1258 2005 Unknown [id number] 2.16.840.1.943086.3.579. 2.125 2005 Unknown [id number] 2.16.840.1.678455.3.579. 2.1258 2005 Unknown [id number] 2.16.840.1.831262.3.579. 2.1259 1980 Unknown [id number] 2.16.840.1.977103.3.579. 2.593 1979 Unknown [id number] 2.16.840.1.541285.3.579. 2.1259 1959 Unknown [id number] Self-pay Self Pay [id number] Social History Date Type Detail Facility Start: [...] Start: 05-12-2023 Sexual orientation Heterosexual (fin ding) [facility] Healthcare Clinical Notes 07-21-2023 to 06-29-2024 Lauren [...] Oscar García D.O. documented in this encounter [facility] 09-15-2023 History of Presen t illness Narrative [...] Physician Signature: Date: documented in this encounter [facility] 07-22-2023 Note [id number]23 Note [id number]#1.[facility] 07-21-2023 Note [facility] SURGERY Clinical Discharge Summary PERSON INFORMATION Name JIMMY BOSTON Age 18 Years 2005 Sex FEMALE Language Ethiopian PCP Siobhan Louis Marital Status Single Phone Med Service Ambulatory Surgery N [id number] Acct# Arrival 07/21/2023 06:46:30 Visit Reason SURGERY - LEFT ACL REPAIR WITH MEDIAL MENISCAL ROOT REPAIR Acuity LOS 005 22:40 Address: [address] [place] [address] Comment: PROVIDER INFORMATION VITALS INFORMATION Vital Sign [...] Follow up: With: Address: When: Lauren García [address] [place], [place] [id number] Business (1) 07/29/2023 1:30 PM DIAGNOSIS Complex tear of medial meniscus of left knee; Sprain of anterior cruciate ligament of left knee Comment: PHYS DOC NOTES [facility] [facility] Evaluation note Diagnosis S/P ACL [...] this encounter [facility] noteNo assessment information availableAsht[facility] Work Phone: Evaluation note* Diagnosis Left knee pain, unspecified chronicity- Primary S/P ACL reconstruction Other postprocedural status documented in this encounter [facility] Healthcare Summary Purpose Family History No Family [...] section and content) DATE CREATED AUTHOR 03/23/2021 [facility] DATE CREATED AUTHOR AUTHOR'S ORGANIZ ATION 04/22/2021 [facility] DATE CREATED AUTHOR AUTHOR'S ORGANIZ ATION 10/15/2023 [facility] DATE CREATED AUTHOR AUTHOR'S ORGANIZ ATION 07/04/2024 [facility] EPIC Care Teams (unrecognized sec tion and content) 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 Specialty Start Date End Date Unallocated, Noms Provider [address] [place] [address] [place] [address] PCP - General 05/28/23 Siobhan Louis MD [facility] [place] [address] Referring Physician Family Medicine 03/05/23 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 Specialty Start Date End Date Unallocated, Noms Provider [address] [place] [address] PCP - General 05/28/23 Siobhan Louis MD [address] [place] [address] Referring Physician Family Medicine 03/05/23 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 Specialty Start Date End Date Unallocated, Noms Provider [address] [place] [address] PCP - General 05/28/23 Siobhan Louis MD [address] [place] [address] Referring Physician Family Medicine 03/05/23 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 Specialty Start Date End Date Unallocated, Noms Provider [address] [place] [place] [address] PCP - General 05/28/23 Siobhan Louis MD [address] [place] [address] Referring Physician Family Medicine 03/05/23 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 Specialty Start Date End Date Unallocated, Noms Provider [address] [place] [address] PCP - General 05/28/23 Siobhan Louis MD [address] [place] [address] Referring Physician Family Medicine 03/05/23 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 Specialty Start Date End Date Unallocated, Noms Provider [address] [place] [address] PCP - General 05/28/23 Siobhan Louis MD [address] [place] [address] Referring Physician Family Medicine 03/05/23 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 Specialty Start Date End Date Unallocated, Noms Provider [address] [place] [id number] PCP - General 05/28/23 Siobhan Louis MD [address] [place] [phone] Referring Physician Family Medicine 03/05/23 Team Status: Active Member Role Status Dates Outreach [facility] Primary Care Provider Active Team Status: Inactive Member Role Status Dates Linda Roberson APRN Attending Provider Active Start: October 30, 2023 End: October 30, 2023 Outreach [facility] Primary Care Provider Active Start: October 30, 2023 End: October 30, 2023 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 Specialty Start Date End Date Unallocated, Marge Malloy MD [address] [place] [id number] PCP - General 05/28/23 Siobhan Louis MD [address] [place] [address] Referring Physician Family Medicine 03/05/23 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 Specialty Start Date End Date Unallocated, Marge Malloy MD [address] [place] [id number] PCP - General 05/28/23 Siobhan Louis MD [address] [place] [address] Referring Physician Family Medicine 03/05/23 Reason for Visit (unrecogniz ed section and content) Specialty Diagnoses / Procedures Referred By Alexey nguyen Referred To Contact Physical Therapy Diagnoses S/P ACL reconstruction Procedures [place] OFFICE/OUTPATIENT NEW HIGH MDM 60 MINUTES Lauren García, DO [address] [place] [address] Terry Badillo, PT [address] [place] [address] Referral ID Status Reason Start Date Expiration Date Visits Requested Visits Authorized [id number] Authorized Specialty Services Required 08/26/2023 02/22/2024 99 [...] BE BASED ON THE PRIMARY CLINICAL RECORDS. [facility] [employer] [facility] provides no warranty or guarantee of the accuracy or completeness of information in this document.
[2025-03-16 14:41] LABS: Hematocrit 42.2 % (36.0-48.0); Hemoglobin 13.6 g/dL (12.0-16.0); Immature Granulocytes Abs Auto 0.01 10^3/uL (0.00-0.03); Immature Granulocytes Pct Auto 0.1 % (0.0-0.5); Lymphocytes Absolute Auto 2.0 10^3/uL (1.2-3.8); Mean Corpuscular HGB Conc 32.2 g/dL (29.9-35.2); Mean Corpuscular Hemoglobin 26.6 pg (26.7-34.0); Mean Corpuscular Volume 82.6 fL (81.0-99.0); Platelet Count 284 10^3/uL (150-450); Red Blood Count 5.11 10^6/uL (4.20-5.40); White Blood Count 7.2 10^3/uL (4.0-11.0)
[2025-03-16 15:14] LABS: Alanine Aminotransferase 15 U/L (14-59); Albumin Globulin Ratio 1.3; Albumin Level 4.4 g/dL (3.4-5.0); Alkaline Phosphatase 59 U/L (46-116); Anion Gap 12.9; Aspartate Amino Transferase 11 U/L (15-37); Blood Urea Nitrogen 8.0 mg/dL (6.4-19.3); Calcium 9.4 mg/dL (8.5-10.1); Carbon Dioxide 27.2 mmol/L (21.0-32.0); Chloride 104 mmol/L (98-107); Cholesterol 166 mg/dL (104-227); Estimated GFR (African America >60 (>=60 mL/min/1.73m^2); Estimated GFR (Non-African Ame >60 (>=60 mL/min/1.73m^2); Free T3 2.61 pg/mL (2.91-4.70); Globulin 3.5 g/dL; Glucose 79 mg/dL (74-106); HDL Cholesterol 32 mg/dL (29-69); Potassium 4.1 mmol/L (3.5-5.1); Sodium 140 mmol/L (136-145); Thyroid Stimulating Hormone 2.754 uIU/mL (0.516-4.130); Total Protein 7.9 g/dL (6.4-8.2); Triglycerides 154 mg/dL (53-208); VLDL CHOLESTEROL 30.8 mg/dL
[2025-03-16 15:43] LABS: Iron 104.0 ug/dL (50.0-170.0)
== END 2025-03-16 14:11 | disposition home or self-care (01) ==
LOC: LAB 14:10
PROVIDERS: PCP Nurse Practitioner Family; Visit Provider Nurse Practitioner Family
DX: Z00.00 Encounter for general adult medical examination without abnormal findings (principal)
CPT/HCPCS: 36415; 80053; 80061; 82306; 83036; 83525; 83540; 84436; 84443; 84481; 85025

== ENCOUNTER 2025-04-14 12:12 | Outpatient (OUT) | payer BC, SELFPAY ==
--- OUTSIDE RECORDS SUMMARY | 2025-04-14 12:29 | XMS_ITS | CCD ---
Author Organization [facility] Care Team Providers [facility] Director Name Role Phone SACHIN, DR HERNDON Attending [...] Attending Unavailable TERRY BADILLO T Attending Unavailable HAVRE DE GRACELAUREN Referring Unavailable TERENCELUL Attending Unavailable SERGIO PALACIOS [...] anterior cruciate ligament reconstruction Xavier García D.O. Formerly [facility], 1928–1983 Radiology Study observation (narrative) [facility] Coding Summaryon 07-29-2023 Coding Summary HTMLBase 64 GnbkwablTDb8oDk+PGhlYWQ+ RS5GBHDbK08ddQAdsL7cO4TO TElOSywgQVBQTElOSyIgbmFt BB6fuWWgPUBw IC8+KO2hJYLbBfmgyFXij3U8 pIV9G85dvn0kBZiedFI7HKCj LeYwrhoaw9pxlAk8DCfrQnlk OyBt KXNvkJ16INU8hJ10Os22iRZf oJRsw0eijOz0LtMfNNBmBNS0 oNqeRNseu5GqQPEvI31jfLHn c2U6 UGXrrVzatGPdDgHyaUC0wQ6k XGtemqttq1ljwfgtRbw1ec59 oYYnm9C4yWY7H2WlgcK5YPVd bGQg WcjdmYOSgF7dxemlk3zdpajy UtMeBSTbYAs4FKa0CSIjrHbo OkAgFX12VCT3MKEvaaKgG9Ga LWFs wUhmUwU1n8V5El6BV7YTBpnx N9UDRRIXMWgfqGQ+IF57hy29 R7XxDwsnCsq7HNVsTSP5xPY4 aD0n UOFgHAvzh5A7tSX3R2MkzcJz uc7cz3moOTPzGQfjT44saWNf g8Y5YRVreZM5JKYoyKbdWbJq aG93 Oyc+MBLxkDvhh2VrHbdso2ix y7qbnEy2NpccMOCnxjOgxAmx WJR4d7WhZd9cHLTloJW3iJI4 aD0i CxLtYvW9KNbzH738KnXuqCFj YhtoO07kS5QbdTL+PHRyPjx0 GFGleLqjAJ6yM2LxAPEfeklz bGVm tCwpYZ4uPOMisexyZAQaiU5f ESPeT4o4PtEdStO3XGknP3Vq DIQyzoumYx03aC2kNkIxNlP6 MGlu F3EskzB0TUDhdPFvMVsqOMM1 Y89zp4M3YZAmJKYhCBB0fSL6 sT9qrKbnicbsjVYxeCzgjvSe dGlj NEqzDMheF907BHJeqXwkHlOk ZGluZyBEYXRlOiAgMTIvMjYv MjAyMzwvdGQ+NXWwNAT3qPgi PSAn mVYmXCddHt9cmWzfvMtoBJ8n VBQyttsuMMPcrB4oFQBirDAi zFqpNZ0wZLUeakmob437EiMx MHB0 ZERnbYYmU9LabX9nMuDgZASy HFFrO9GhgHYqLOazN930PYsu YcH4FCIrigAaO2BuNXTtaFgn OiB0 n0L0Tz8Oe5DqercdH2GuvXAu UpMjNkbsSRy4L5LoGswcsHL+ FU38VMCkOJ12HFe6OXY4fTsd PSdi JICbE9VilX1gUhTtQRTtBUDo Oyc+PHRhYmxlIHdpZHRoPScx PHTyHaJxoAjrAK0iKe6eLEGr LWNv iNzshJGvKrIex6qtENRwEFbm SO0aqKxjZ8LsqHN9DGEvg5q1 Mz53C67gY3VtnEZ+PGNvbCB3 aWR0 nM0qOvAdMsD9PAvrA407WjAu tWImYuykq8jif8pjvJa5ArB0 UQGngeOcgPecDYB4k6VkLx16 Y29s IHdpZHRoPSIxNSUiIHZhbGln cp8rhR5kZw4+WERcwOP6eAJ1 qX3vMkEzYuL5OVeeU726OoCx cCIv Zbfnp6ozd3xywGd1NiLyHNKn uxYixCseQHX2t5JmOv26L3Ci bAqno3VhBtk2xm36mQOwd7L0 bGU9 X0RtPTRljtgmwCCvmHenHO5w FSUbziryOSHmcR9tLQYyG7b2 RzQuUoQ3LPmrW6YedzS9UBOc bGQg UPZfzWCMlZ4uohfte0fvkglv LkCuNTPoEKs3NOs9SQJvpLhm XtLmPSR3DjA9CGY2gABpqW1d bGln nfwsdC4zBwq+XZD1xLBubCQW JY1pOpqewYI+SFCeQOJ4dMvu USwdPAWmzY7wLOMtM6v9DxMz LjA1 PWbtT2MpfdN6TNTwvNQlVOEv eIRWuO9mkemtd7sgnqmxFsDz WRMkWKs2KBt7ISZsjVbkPiJz ZWZ0 IrX9FVY0eCFnnX1cuCwqyprk fY8eHty+FqrhpRohYOW7TZo8 A2ThOxa4BQJsxPhdLE1mcALk ZGlu Mh0adJapyBdrIV1oHTBlwtui m405YvVcd3giJSDanMZmOQst VTI3A85xw1U7OWDkKAPyFWO1 dGV4 hJ8fzCjswaqutGHhyTbhmiQe lMndNUhkRPczN549LEVimRhd YtTzWRt2I6KgKmc0RJKfxHii ZT0n fOJeYQktIc7juOyjfUejXT3o THMnctauk489FmHiz2ckDGHe kSNjBFloWTT4C82he7Y3YJEh MDAw BCT6gJO6tX4bmCbclpmnrFKy eFkscyYxuMdkPStnXRfhC760 XDVfvZeaClWqqGb6L9ZcApc4 ZCBz qPciDD2rkOXuYRaxRi8cmAac mNleNO8lOTZlswvmz061QzAn z6zdIKXpgDXoCWdvCUO5S83x b3I6 UGPuCZXoHCU1tHB4eV6jkYwz bjogbGVmdDsgdmVydGljYWwt CSwtA146YZMsmExgPiRkwNdr bnQg JScbXPo6D8EmMhbkqWP+PC90 ITWkRT20tQRpzKHjr8onfAp0 HkJiOYNhCIP8dOfcKJxnv5Qc ZXIt R76neTTxj2Z2OAItwUartZRd HyCbrXA8dG4gFJehulrmg5cj wgdqQpqwg3wlbv87uW12R69l IHdp OQAqUTSaUMSbEDNsqPxmgf0f jR4hQb4+SYJuhJE4iMH7yG2j ZVNuVbN3YLuiO603AkRutOAk Pjxj o5bmm4tpfYg8QaV3TRXlpmOf kLdsYIA9v7RcEn60E30yIOrw KCAqTNChPZTfHZYnyQpjho2b dG9w Ii8+QNPpoFR9tVD7kP3rVqVb XvW5TScwN491ZyEnzPLfQgou V82nD9BtaOF+RLFvNdy9HDOr dHls NH3nfUKlYSywLp6bJVM4VyGx UmQhECndX2AkQECwqfsncfir lQV7ETHpMUZsvT51Jw3odXtw MTBw aHJIdC6rzxldd4nfijxpSdRs LWDbGLh9OPq2HIWnnWseJuJk JQT5QhZ1OTZ1kVXmwW3rjNjp bjog iC9lX4WhFHNiolplIj93dO6n IkXuXpK4SZjyYod+TUlMTEVS UIVHWVFBMLESBE02Z6LtXst2 ZCBz fIsnDH7nsEXkXIkzOk9tsFra mKjgJD8jSICsgoxvOKUafZ0c PKJsfWFdxIntUM1iICXwllda b250 HsDwAII6NPCwrRErK9FcpE9y LcBqMTKaJATeG4FlkYPcYNac J798AZvsWwQ1PEGhteFvD2Pe LWFs vSlnLfX1k0T4Km4zQC4yMU5v AEB4QX23RX67eUJqe2N1qZH2 U6DlHSJqhiidxhaksQI3UAYz MDUw xK49tJRyUAajYp9dy4N9p291 VDHgJYFuyG73Tl4puZpoMDIo xOVQtD8sjpmds9fsglijDpFs MDAw UBz0QKk8SLBkuEjwZmXgHHY7 VyW7HKU8qHQfxH3flKyglswy jK0kUzz+CIesAACzqmN1I3Wp Pjx0 DOVslTofZZ1sfSAxOXgvOx9u rLthdKciLZ6jYVOiqqvsVCTp sR8cSZFalHJinRagSQ3zSNZt bjtm z262JyEvAOJ9SHIayBMnM6Wm uA8mEgSqRZAaGRDaG9TygLQd JJrrN812UUicVuC2GEGrgiRc Y2Fs VXOwlLvgBsE6d9T5He5MHW0M JRC4R2IjUvc7SQCwqVnyIY7w pEJoPNjgIc3qeQzpfEjuAI5d NTBp bkuzTGTaxT1wKEIkzFCsoYhb ZO8zTRMpsxfwh199VdStJLW0 ZTLcjHDjT9LexN6vPkPkPRMi MDAw S1FheBUiZMurQ082VEcyAgG9 CGFdinXzA6ZeIPEebUwrEqC6 e7W6Pl1DGWwpL6DmY3QriIhr dGQ+ RF57in00I6RdGfxyFym9BFBy HOL9xWQ3bL2dUFLpZGypp3K9 dJZ3M1IbfaCshg3rv8bmKXSs ZTog J76afZMfe9Z1DAOlsXZ5LFGa gNhuRoXcdT81Mjh+PGNvbGdy d9MqHeycy7wiu7mfxSd9TfRv JSIg bvAdvQnjNEM8m9DbDy81M59f IHdpZHRoPSIzMCUiIHZhbGln bp0ocG1aGn4+AOZdlTO1vSN7 aD0i IcRwIeA6DFnkF882UqKajAPx Eprob6bev4knzPb3QjVbKPGo fqAymKkxTFT0u9GjRm16D9Lx bGdy u8CdOkz1cc73sTLpf1B1nVQ8 V7OvDOTgnkkouEHqcOctEK4z HBGxywckOHBtpV8eCZQaH4v3 OiAw RxW4IYrsA4RoyoE5EBVetIVi ACVuhHIBmS7sxrnbx5jllgvv McUuLQXbXFp2NHf9SGLccTnf OiBs NMT1DfY1CWF1jEEuvC8ryLse ywncgB5eJnz+XKk6m9ksoGPn CL8wnPS0XJ86ZC15mTJhx6V3 bGU9 E0PhGFPikrfgzdxjpTU6DGWd MYMlzN98Na9gmEufYj6xZFSw PXS4BYWkqYLzI4IvdI2sYhXv MDAw ZASlR7YlzYKgRPbeS864PEwq GbX4ISPyuxNrU4CzNCSdkNjc OqQ7k1H9Qb4IDJ52HA89YP36 dGQg f7U4lDL3E9GrMJXlparmmfxv jPK0DBHbVSCpoP05Ih8pgDle Un5rLAQnUMS3QOQymRIbX5Pa bG9y BhCfHLCxGBJbH9RlnSEsSOqo T429VFexYrA0NKPetfDhJ8An OFSysZdxQcD6s6L8Gp6PJq95 PC90 CA51cMTgs6O0rSZ9W2ImCWMw bxifqheumMQ1SJDoQIZtmF56 Nb1naMybCu4kRVFxLHI3VDWb bWVz W5UpmL2pYmKkJYRoFHBgE6Jz rGOyGNkbI362CMwjZpF7OJAg acOdX6RlLUHfrAwkQwZ2x4A4 Jz5Q ENayhmy3R1IxTjelbQI+PC90 MXJkCP65hVPviRRnm5wrgPp1 SfTfHGJsKKI7wFwvMWdrd6Mv ZXIt Y29 (more content not included)... [facility] Anesthesia Noteon 07-22-2023 Anesthesia Note [id number] TIFF [facility] Consent Formson 07-22-2023 Consent Forms [id number]#1.00OTGT IFF [facility] Discharge Instructionson Discharge Instructions [id number]#1.00OTGT IFF [facility] Telemetry Stripson Telemetry Strips [id number]#1.00OTG TIFF [facility] Anesthesia Noteon 07-21-2023 Anesthesia Note Patient: ADORE BOSTON Age: 18 years Sex: FEMALE : 2005 Associated Diagnoses: None Author: Kendell Delacruz MD Postoperative Information Post Operative Note: Operative Day. Anesthetic utilized: General. Health Status Allergies: Allergic Reactions (All) No known allergies Problem list (past medical history): All Problems Anxiety / SNOMED CT 67672222 / Confirmed Depression / SNOMED CT 31472732 / Confirmed Physical Examination VS/Measurements Vital Signs [...] on: 07/21/2023 12:25 EST] Kendell Delacruz MD [facility] Anesthesia Note Patient: ADORE BOSTON Age: [...] history): All Problems Anxiety / SNOMED CT 46300309 / Confirmed Depression / SNOMED CT 87609200 / Confirmed Histories Family History: History is [...] Adequate opening, Tongue ( Within normal limits, [place], Moist ), Teeth ( Within normal limits ), Palate ( Within normal limits ). Neck: Supple, Non-tender, Full range of motion. Respiratory: Lungs are clear to auscultation, Respirations are non-labored, Breath sounds are equal, Symmetrical chest wall expansion. Cardiovascular: Normal rate, Regular rhythm, No murmur, No gallop. Neurologic: Alert, Oriented. Review / Management Laboratory Results Plan [place] [employer] Anesthesiologists#(ASA) physical status classification: Class [...] on: 07/21/2023 08:55 EST] Kendell Delacruz MD [facility] Inpatient Patient Summaryon 07-21-2023 [place] [address] Patient Discharge Instructions Name: JIMMY BOSTON : 2005 Patient Address: [address] [place] [address] Primary Care Provider: Name: Siobhan Louis After you are discharged if you find you have any questions, please, call [phone] ext [phone] to speak to a nurse. Discharge Diagnosis: [...] problems; contact the Mental Health & Recovery [facility] 24/02 Crisis Hotline -Text 4HAEB vw 257250. If you received any narcotics, sedation, or [...] business decisions or sign any legal documents [facility] would like to thank you for allowing us to assist you with your healthcare needs. The following includes patient education materials and information regarding your injury/illness. JIMMY BOSTON has been given the following list of follow-up instructions, prescriptions, and patient education materials: Follow-up Instructions With: Address: When: Lauren García [address] [place] [address], [address] [place] [address] Business (1) 07/29/2023 1:30 PM Medications During [...] or concerns, please call the office at [phone]. Viruses or Bacteria What?s got you sick? [...] When Antibiot (more content not included)... [facility]23 MAGR Intraoperative Record MAGR Intra-Op Record Summary Primary Physician: Lauren García DO Finalized Date/Time: 07/21/23 13:00:06 Pt. Name: JIMMY BOSTON.O.B./Sex: 2005 FEMALE Med Rec #: [id number] Physician: Lauren García DO Financial #: [id number] Pt. Type: D Room/Bed: / Admit/Disch: 07/21/23 [...] Role Performed Surgeon - Primary Anesthesiologist of Computer Video Game Designer Record Time In 07/21/23 09:25:00 07/21/23 09:09:00 [...] Lauren M CSFA Role Performed Scrub Personnel Canvas Baster Jumpbasting Time In 07/21/23 09:09:00 07/21/23 09:09:00 Time [...] Prep Agents (Im.270) 2% Chlorhexidine Prep By iMya Bonner CSFA Gluconate and 70% Isopropyl Alcohol [...] Cruciate(Left) Counts Verification (more content not included)... [facility] MAGR Intraoperative Record MAGR Intra-Op Record Summary Primary Physician: Finalized Date/Time: 07/21/23 12:06:26 Pt. Name: LUDYJIMMY CESAR /Sex: 2005 FEMALE Med Rec #: [id number] Physician: Lauren García DO Financial #: [id number] Pt. Type: D Room/Bed: / Admit/Disch: 07/21/23 [...] Draper, Lora RN Role Performed Anesthesiologist of Computer Video Game Designer Computer Video Game Designer Record Time In 07/21/23 08:30:00 07/21/23 08:30:00 [...] By De (more content not included)... [facility] MAGR PACU Record MAGR PACU Record [facility] Primary Physician: Lauren García DO Finalized Date/Time: 07/21/23 12:48:56 Pt. Name: JIMMY BOSTONO.B./Sex: 2005 FEMALE Med Rec #: [id number] Physician: Lauren García DO Financial #: [id number] Pt. Type: D Room/Bed: / Admit/Disch: 07/21/23 06:46:30 - Institution: PACU Case Times MAGR Entry 1 In PACU I 07/21/23 11:53:00 Discharge from PACU 07/21/23 12:48:00 I Last Modified By: Damari Gómez RN 07/21/23 12:48:50 Finalized By: Damari Gómez RN Document Signatures Signed By: Damari Gómez RN 07/21/23 12:48 [facility] MAGR Postoperative Recordon 07-21-2023 MAGR Postoperative Record MAGR Phase II Record Summary Primary Physician: Lauren García DO Finalized Date/Time: 07/21/23 14:41:42 Pt. Name: JIMMY BOSTON/Sex: 2005 FEMALE Med Rec #: [id number] Physician: Lauren García DO Financial #: [id number] Pt. Type: D Room/Bed: / Admit/Disch: 07/21/23 [...] Signed By: Andriy Gayle RN 07/21/23 14:41 [facility] MAGR Preoperative Recordon 1 09-21-2022 MAGR Preoperative Record MAGR Pre-Op Record Summary Primary Physician: Lauren García DO Finalized Date/Time: 07/21/23 09:39:10 Pt. Name: JIMMY BOSTON/Sex: 2005 FEMALE Med Rec #: [id number] Physician: Lauren García DO Financial #: [id number] Pt. Type: D Room/Bed: / Admit/Disch: 07/21/23 [...] By: Joselin Yang RN 07/21/23 09:39 Normal [facility] Operative Report - Surgeon/P cammy 07-21-2023 Operative [...] on: 07/21/2023 12:00 EST] Lauren García DO [facility] Patient Handouton 07-21-[address] [...] or concerns, please call the office at [phone]. [facility] Test Urine 1on U Preg Negative [facility] Comment on above: Performed By: #### [id number] ####[facility] (DEFAULT)[address] [place] [address] U Preg Internal Control Pass [facility] Comment on above: Performed By: #### [id number] ####[facility] (DEFAULT)[address] [place] [address] Progress Note - Nurseon 07-04 Progress Note - Nurse Spoke with pt and informed her to be here at 7am and NPO after MN, she verbalizes understanding. [Electronically Signed on: 07/18/2023 13:51 EST] Benito Salas RN [Verified on: 07/18/2023 13:51 EST] Benito Salas RN [facility] Auth for Release of Medical Recordson 04-20-2021 Auth for Release of Medical Records [id number]#[id number]: 127 Normal [facility] Covid-19 PCR (CVDTBH)on 03-04 SARS-CoV-2 (COVID-19) RNA YELITZA+probe Ql (Unsp spec) Not detected Normal NOT DETECTED [facility] Comment on above: Result Comment: This test is not yet approved or cleared by the [place] FDA. When there are no FDA-approved or cleared tests available, and other criteria are met, FDA can make tests available under an emergency access mechanism called an Emergency Use Authorization (EUA). The EUA for this test is supported by the Refinery Operator Visbreaking of Health and Human Service's (HHS's) declaration [...] Performed By: #### C JH BANGS #### [facility] [address] [place] [address] Jeremie Vann SYMPTOMATIC COVID-19 ANTIGEN on 03-21-2021 EUA Statement SEE BELOW Normal [facility] Comment on above: Result Comment: This [...] Performed By: #### C JH BANGS #### [facility] [address] [place] [address] Jeremie Vann SARS-CoV-2 (COVID-19) RNA YELITZA+probe Ql (Unsp spec) Negative Normal NEGATIVE [facility] Comment on above: Result Comment: CONF IRMATION BY PCR PENDING PER CDC GUIDELINES/ SYMPTOMATIC PATIENT. Performed By: #### C BETI, CVDCLINTS #### [facility] [address] [place] [address] Jeremie Vann Vital Signs Date Time Vital Sign Value Performing Clinician Faci lity 10-30-2023 16:42-0400 Body height 165.1 cm [facility] 10-30-2023 16:42-0400 Body mass index (BMI) [Percentile] Per age and sex 98.8 % [facility] 10-30-2023 16:42-0400 Body mass index (BMI) [Ratio] 40.6 kg/m2 [facility] 10-30-2023 16:42-0400 Body temperature 98.7 [degF] [facility] 10-30-2023 16:42-0400 Body weight 110.67 kg [facility] 10-30-2023 16:42-0400 Heart rate 112 /min [facility] 10-30-2023 16:42-0400 Respiratory rate 18 /min [facility] 10-30-2023 16:42-0400 SaO2% (BldA) [Mass fraction] 98 % [facility] Encounters Encounter Date Encounter Type Care [...] Start: 10-30-2023 End: 10-30-2023 Patient encounter procedure [facility] [place] Work Phone: Start: 10-30-2023 End: 10-30-[address] [facility] Work Phone: Start: 10-22-2023 End: 10-22-2023 ambulatory SERGIO PALACIOS Not Available Start: 10-20-2023 End: 10-20-2023 ambulatory LIBERTAD JACKSON Not Available Start: 10-16-2023 End: 10-16-2023 ambulatory SERGIO PALACIOS Not Available Start: 10-15-2023 End: 10-15-2023 ambulatory Lauren Harpston Facility:[facility] Start: 10-13-2023 End: 10-13-2023 ambulatory LUL LOPEZ [...] Start: 09-18-2023 End: 09-18-2023 ambulatory Libertad Ceey [employer]IPPING AG[employer] [facility] Comment on above: Acute pain of left k nee (Primary Dx); S/P ACL reconstruction Start: 09-18-2023 Bamboo flowsheet Libertad Ceey [employer]IPPING AG[employer] [facility] Start: 09-18-2023 Bamboo flowsheet Libertad Ceey [employer]IPPING AGENT [facility] Start: 09-15-2023 End: 09-16-2023 [...] Start: 09-11-2023 End: 09-11-2023 ambulatory Sergio Palacios [employer]IPPING AG[employer] [facility] Comment on above: S/P ACL reconstructi on (Primary Dx); Acute pain of left knee; Sprain of anterior cruciate ligament of left knee, initial encounter; Patellar instability of left knee Start: 09-08-2023 End: 09-08-2023 ambulatory LIBERTAD KELBLEY Not Available Start: 09-05-2023 End: 09-05-2023 ambulatory Libertad Jackson [employer]IPPING AG[employer] [facility] Comment on above: S/P ACL reconstructi on (Primary Dx); Acute pain of left knee; Sprain of anterior cruciate ligament of left knee, initial encounter; Patellar instability of left knee Start: 09-05-2023 Bamboo flowsheet Libertad Jackson [employer]IPPING AGENT [facility] Start: 09-05-2023 Bamboo flowsheet Libertad Jackson [employer]IPPING AG[employer] [facility] Start: 09-02-2023 End: 09-02-2023 ambulatory LULConor LOPEZ Not Available Start: 08-28-2023 End: 08-28-2023 ambulatory TERRY BADILLO Not Available Start: 08-26-2023 End: 08-26-2023 ambulatory LAUREN GARCÍA Not Available Start: 07-29-2023 End: 07-29-2023 ambulatory LAUREN GARCÍA Not Available Start: 07-21-2023 End: 07-21-2023 ambulatory Lauren García Facility:[facility] Start: 07-15-2023 End: 07-15-2023 ambulatory LAUREN GARCÍA Not Available Start: 03-21-2021 End: 03-21-[address] YANICK STEPHENSON Facility: Procedures Date Procedure Procedure Detail Performing Clinician Start: 06-29-2024 Radiologic examinati on knee 1/2 views Lauren García DO Work Phone: History of operative procedure on knee S/P ACL reconstruction Libertad Jackson SHIPPING AGENT History of operative procedure on knee S/P ACL reconstruction Sergio Palacios SHIPPING AGENT History of operative procedure on knee S/P ACL reconstruction Terry Badillo PT Work Phone: History of operative procedure on knee S/P ACL reconstruction Libertad Jackson [employer]IPPING AGENT History of operative procedure on knee S/P ACL reconstruction Lauren García DO Work Phone: Plan of Treatment Date Care Activity Detail Author Start: 04-04-2024 Influenza vaccination Influenza Vacc ine (#1) [facility] Start: 10-08-2023 End: 10-08-2023 ambulatory 10/08/2023 3:00 PM EST Treatment [facility] [address] [place] [address] Terry Badillo, PT [address] [place] [address] [facility] Start: 10-07-2023 End: 10-07-2023 Patient encounter procedure 10/07/2023 2:15 PM EST Office Visit [facility] [address] [place] [address] Lauren García, DO [address] [place] [address] [facility] Start: 10-06-2023 End: 10-06-2023 ambulatory [facility] Start: 10-01-2023 End: 10-01-2023 ambulatory 10/01/2023 3:30 PM EST Treatment [facility] [address] [place] [address] Terry Badillo, PT [address] [place] [address] [facility] Start: 09-29-2023 End: 09-29-2023 ambulatory 09/29/2023 4:00 PM EST Treatment [facility] [address] [place] [address] Libertad Jackson, SHIPPING AGENT Internal derangement of left knee [facility] Comment on above: Internal derangement of left knee Start: 09-25-2023 End: 09-25-2023 ambulatory 09/25/2023 3:00 PM EST Treatment [facility] [address] [place] [address] Libertad Jackson, SHIPPING AGENT [facility] Start: 09-23-2023 End: 09-23-2023 ambulatory 09/23/2023 3:00 PM EST Treatment [facility] [address] [place] [address] Lul Lopez, SHIPPING AGENT [facility] Start: 09-18-2023 End: 09-18-2023 ambulatory [facility] Comment on above: Arrived Start: 09-15-2023 End: 09-15-2023 ambulatory [facility] Comment on above: Arrived Start: 09-11-2023 End: 09-11-2023 ambulatory 09/11/2023 3:30 PM EST Treatment [facility] [address] [facility] [address] [place] [address] Sergio Palacios SHIPPING AGENT [facility] Start: 09-08-2023 End: 09-08-2023 ambulatory 09/08/2023 4:00 PM EST Treatment [facility] [address] [facility] [address] [place] [address] Libertad Jackson PTA [facility] Start: 09-05-2023 End: 09-05-2023 ambulatory 09/05/2023 2:30 PM EST Treatment [facility] [address] [facility] [address] [place] [address] Libertad Jackson PTA S/P ACL reconstruction (Primary [...] Immunizations Immunization Date Immunization Notes Care Provider [facility] 07-15-2011 influenza virus vacc ine, unspecified formulation Lauren García DO Work Phone: [facility] Payers Date Payer Category Payer [facility] [id number] 2017 Unknown BCBS BCBS xxxxxx [id number] 2017-Present [phone] [address] [place] [address] 1.2.840.837515.1.13.693. 2.7.3.739183.315 2005 Unknown [id number] 2.16.840.1.161840.3.579. 2.718 2005 Unknown [id number] 2.16.840.1.052173.3.579. 2.718 2005 Unknown [id number] 2.16.840.1.855885.3.579. 2.125 2005 Unknown [id number] 2.16.840.1.427923.3.579. 2.1258 2005 Unknown [id number] 2.16.840.1.777912.3.579. 2.1258 2005 Unknown [id number] 2.16.840.1.023438.3.579. 2.9 2005 Unknown [id number] 2.16.840.1.465382.3.579. 2.1258 2005 Unknown [id number] 2.16.840.1.498325.3.579. 2.125 2005 Unknown [id number] 2.16.840.1.278991.3.579. 2.1258 2005 Unknown [id number] 2.16.840.1.832380.3.579. 2.1258 2005 Unknown [id number] 2.16.840.1.679004.3.579. 2.125 2005 Unknown [id number] 2.16.840.1.548765.3.579. 2.1259 2005 Unknown [id number] 2.16.840.1.214853.3.579. 2.1258 2005 Unknown [id number] 2.16.840.1.672782.3.579. 2.1258 2005 Unknown [id number] 2.16.840.1.147630.3.579. 2.1258 2005 Unknown [id number] 2.16.840.1.706819.3.579. 2.1258 2005 Unknown [id number] 2.16.840.1.015023.3.579. 2.1258 2005 Unknown [id number] 2.16.840.1.400518.3.579. 2.1258 2005 Unknown [id number] 2.16.840.1.903701.3.579. 2.1258 2005 Unknown [id number] 2.16.840.1.379965.3.579. 2.1258 2005 Unknown [id number] 2.16.840.1.429613.3.579. 2.1258 2005 Unknown [id number] 2.16.840.1.487990.3.579. 2.1258 2005 Unknown [id number] 2.16.840.1.712118.3.579. 2.1258 2005 Unknown [id number] 2.16.840.1.175933.3.579. 2.1258 2005 Unknown [id number] 2.16.840.1.327235.3.579. 2.125 2005 Unknown [id number] 2.16.840.1.700637.3.579. 2.1258 2005 Unknown [id number] 2.16.840.1.321071.3.579. 2.1259 1980 Unknown [id number] 2.16.840.1.489110.3.579. 2.593 1979 Unknown [id number] 2.16.840.1.740991.3.579. 2.1259 1959 Unknown [id number] Self-pay Self Pay [id number] Social History Date Type Detail Facility Start: [...] Start: 05-12-2023 Sexual orientation Heterosexual (fin ding) [facility] Clinical Notes 07-21-2023 to 06-29-2024 Lauren [...] Oscar García D.O. documented in this encounter [facility] 09-15-2023 History of Presen t illness [...] Physician Signature: Date: documented in this encounter [facility] 07-22-2023 Note [id number] [id number] Note [id number]#1.00[facility] 07-21-2023 Note [facility] SURGERY Clinical Discharge Summary PERSON INFORMATION Name JIMMY BOSTON Age 18 Years 2005 Sex FEMALE Language Korean PCP Siobhan Louis Marital Status Single Phone Med Service Ambulatory Surgery N [id number] Acct# Arrival 07/21/2023 06:46:30 Visit Reason SURGERY - LEFT ACL REPAIR WITH MEDIAL MENISCAL ROOT REPAIR Acuity LOS 005 22:40 Address: [address] [place] [address] Comment: PROVIDER INFORMATION VITALS INFORMATION Vital Sign [...] Follow up: With: Address: When: Lauren García [address] [place], [place] [address] Business (1) 07/29/2023 1:30 PM DIAGNOSIS Complex tear of medial meniscus of left knee; Sprain of anterior cruciate ligament of left knee Comment: PHYS DOC NOTES [facility] Evaluation note Diagnosis S/P ACL reconstruction- Primary [...] [facility] noteNo [facility] Work [facility]: Evaluation note* Diagnosis Left knee pain, unspecified chronicity- Primary S/P ACL reconstruction Other postprocedural status documented in this encounter [facility] Healthcare Summary Purpose Family History No Family [...] section and content) DATE CREATED AUTHOR 03/23/2021 [facility] DATE CREATED AUTHOR AUTHOR'S ORGANIZ ATION 04/22/2021 [facility] DATE CREATED AUTHOR AUTHOR'S ORGANIZ ATION 10/15/2023 [facility] DATE CREATED AUTHOR AUTHOR'S ORGANIZ ATION 07/04/2024 [facility] dical Specialists EPIC Care Teams (unrecognized sec tion and content) Counseling Center Director Relationship Specialty Start Date End Date Unallocated, Noms Provider [address] [place] [address] [place] [address] PCP - General 05/28/23 Siobhan Louis MD [facility] [place] [address] Referring Physician Family Medicine 03/05/23 Counseling Center Director Relationship Specialty Start Date End Date Unallocated, Noms Provider [address] [place] [address] PCP - General 05/28/23 Siobhan Louis MD [address] [place] [address] Referring Physician Family Medicine 03/05/23 Counseling Center Director Relationship Specialty Start Date End Date Unallocated, Noms Provider [address] [place] [address] PCP - General 05/28/23 Siobhan Louis MD [address] [place] [address] Referring Physician Family Medicine 03/05/23 Counseling Center Director Relationship Specialty Start Date End Date Unallocated, Noms Provider [address] [place] [address] PCP - General 05/28/23 Siobhan Louis MD [address] [place] [address] Referring Physician Family Medicine 03/05/23 Counseling Center Director Relationship Specialty Start Date End Date Unallocated, Noms Provider [address] [place] [address] PCP - General 05/28/23 Siobhan Louis MD [address] [place] [address] Referring Physician Family Medicine 03/05/23 Counseling Center Director Relationship Specialty Start Date End Date Unallocated, Noms Provider [address] [place] [place] [address] PCP - General 05/28/23 Siobhan Louis MD [address] [place] [address] Referring Physician Family Medicine 03/05/23 Counseling Center Director Relationship Specialty Start Date End Date Unallocated, Noms Provider [address] [place] [address] PCP - General 05/28/23 Siobhan Louis MD [address] [place] [address] Referring Physician Family Medicine 03/05/23 Team Status: Active Member Role Status Dates Outreach [facility] Primary Care Provider Active Team Status: Inactive Member Role Status Dates Linda Roberson APRN Attending Provider Active Start: October 30, 2023 End: October 30, 2023 Outreach [facility] Primary Care Provider Active Start: October 30, 2023 End: October 30, 2023 Counseling Center Director Relationship Specialty Start Date End Date Unallocated, Marge Malloy MD [address] [place] [address] PCP - General 05/28/23 Siobhan Louis MD [address] [place] [address] Referring Physician Family Medicine 03/05/23 Counseling Center Director Relationship Specialty Start Date End Date Unallocated, Marge Malloy MD [address] [place] [address] PCP - General 05/28/23 Siobhan Louis MD [address] [place] [address] Referring Physician Family Medicine 03/05/23 Reason for Visit (unrecogniz ed section and content) Specialty Diagnoses / Procedures Referred By Alexey nguyen Referred To Contact Physical Therapy Diagnoses S/P ACL reconstruction Procedures [place] OFFICE/OUTPATIENT NEW HIGH MDM 60 MINUTES Lauren García, DO [address] [place] [address] Terry Badillo, PT [address] [place] [address] Referral ID Status Reason Start Date Expiration Date Visits Requested Visits Authorized [id number] Authorized Specialty Services Required 08/26/2023 02/22/2024 99 [...] BE BASED ON THE PRIMARY CLINICAL RECORDS. [facility] [employer] [facility]. provides no warranty or guarantee of the accuracy or completeness of information in this document.
[2025-04-14 13:33] LABS: Alanine Aminotransferase 17 U/L (14-59); Albumin Globulin Ratio 1.2; Albumin Level 4.5 g/dL (3.4-5.0); Alkaline Phosphatase 63 U/L (46-116); Anion Gap 11.5; Aspartate Amino Transferase 7 U/L (15-37); Blood Urea Nitrogen 9.0 mg/dL (6.4-19.3); Calcium 9.1 mg/dL (8.5-10.1); Carbon Dioxide 29.0 mmol/L (21.0-32.0); Chloride 104 mmol/L (98-107); Estimated GFR (African America >60 (>=60 mL/min/1.73m^2); Estimated GFR (Non-African Ame >60 (>=60 mL/min/1.73m^2); Free T3 2.33 pg/mL (2.91-4.70); Globulin 3.7 g/dL; Glucose 82 mg/dL (74-106); Potassium 4.5 mmol/L (3.5-5.1); Sodium 140 mmol/L (136-145); Thyroid Stimulating Hormone 3.178 uIU/mL (0.516-4.130); Total Protein 8.2 g/dL (6.4-8.2)
== END 2025-04-14 12:13 | disposition home or self-care (01) ==
LOC: LAB 12:15
PROVIDERS: PCP Nurse Practitioner Family; Visit Provider Nurse Practitioner Family
DX: R89.9 Unspecified abnormal finding in specimens from other organs, systems and tissues (principal)
CPT/HCPCS: 36415; 80053; 84436; 84443; 84481

== ENCOUNTER 2025-08-02 12:06 | Outpatient (OUT) | payer BC, SELFPAY ==
--- OUTSIDE RECORDS SUMMARY | 2025-08-02 12:10 | XMS_ITS | Patient Health Record ---
Author Organization [facility] in [place] Address [address] [place] [address] Care Team Providers Care Property Custodian Name Role Phone Missy Siobhan Primary Care Provider Allergies No Known Allergies Results Component Value Reference Range Notes FREE T4 Reviewed date:09/14/2024 08:59:05 AM Interpretation: Performing Lab: Notes/Report: [facility] , Free T4 0.87 0.78-1.34 ng/dL Performing Lab:see noteML - [facility] LBTSH Reviewed date:09/15/2024 12:56:15 PM Interpretation: Performing Lab: Notes/Report: [facility] ,Thyroid Stimulating Hormone3.0070.516-4.130 uIU/mLPerforming Lab:see noteML - [facility] LBFREE T3 Reviewed date:03/17/2025 01:11:11 PM Interpretation: Performing Lab: Notes/Report: [facility] ,Free T32.612.91-4.70 pg/mLPerforming Lab:see noteML - [facility] LB GLYCOHEMOGLOBIN A1C Reviewed date:03/17/2025 01:11:11 PM Interpretation: Performing Lab: Notes/Report: [facility] ,Glycohemoglobin A1C4.84.5-6.2 % ADA THERAPEUTIC TARGET < 7.0 > 7.0 ADA RECOMMENDED LIMIT 4.0 - 6.0 ACTION SUGGESTED Estimated Average Kxyrqqk69Fpvzdttlmj Lab:see noteML - [facility] LB INSULIN Reviewed date:03/17/2025 01:11:11 PM Interpretation: Performing Lab: Notes/Report: [facility] ,Tsbidcu72.52.6-24.9 uIU/mL Pet Technologist: Sergei Siddiqui PhD, Phone: [phone] [address] [place], [place] [phone] Performed at: [facility] Performing Lab:see noteLC - [facility] LBLIPID PROFILE Reviewed date:03/17/2025 01:11:11 PM Interpretation: Performing Lab: Notes/Report: [facility] ,Newfefxthktep91427-256 mg/kUEkmwgymqzyy441816-880 mg/dLHDL Fzmuhzivdeo3047-22 mg/dL <40 mg/dl - HIGH CARDIOVASCULAR RISK > or =60 mg/dl - LOW CARDIOVASCULAR RISK LDL Cholesterol Dcdrdcapss778.2 100-129 mg/dl NEAR OR ABOVE OPTIMAL <100 mg/dl OPTIMAL 130-159 mg/dl BORDERLINE HIGH 160-189 mg/dl HIGH >190 mg/dl VERY HIGH VLDL DLODEFMFEZM19.8Chol HDL Ratio5.2 3.3 - 4.4 LOW RISK 4.4 - 7.1 AVERAGE RISK 7.1 - 11.0 MODERATE RISK >11.0 HIGH RISK Performing Lab:see noteML - [facility] LBPROF 14(COMP METB) Reviewed date:03/17/2025 01:11:11 PM Interpretation: Performing Lab: Notes/Report: [facility] ,Sgfsfj293692-937 mmol/LPotassium4.13.5-5.1 mmol/EHkdzbeeq84803-742 mmol/LCarbon Yszqmqg04.221.0-32.0 mmol/LAnion Gap12.6Uuehjbq5090-213 mg/dLBlood Urea Nitrogen 8.06.4-19.3 mg/dLCreatinine0.600.55-1.02 mg/dLEstimated GFR ( Amarilis>60 >=60 mL/min/1.73m 2Estimated GFR (Non- Ilsa>60>=60 mL/min/1.73m 2BUN Creatinine Ratio13.7Knmwcqi9.48.5-10.1 mg/dLBilirubin Total1.40.2-1.0 mg/dL Aspartate Amino Qkzuqxdwdbv5578-94 U/LAlanine Qsitsxajwmtzwbrt6210-99 U/L Alkaline Ylgccvifmoj3329-311 U/LTotal Protein7.96.4-8.2 g/dLAlbumin Level4.43.4- 5.0 g/dLGlobulin3.5Albumin Globulin Ratio1.3Performing Lab:see noteML - [facility] LBT4 Reviewed date:03/17/2025 01:11:11 PM Interpretation: Performing Lab: Notes/Report: [facility] ,T4 Thyroxine7.605.40-10.60 ug/dLPerforming Lab:see noteML - [facility] LBTSH Reviewed date:03/17/2025 01:11:11 PM Interpretation: Performing Lab: Notes/Report: [facility] ,Thyroid Stimulating Hormone2.7540.516-4.130 uIU/mLPerforming Lab:see note - [facility] LBVITAMIN D 25 [place] Reviewed date:03/17/2025 01:11:11 PM Interpretation: Performing Lab: Notes/Report: [facility] ,Vitamin D19.1 30-100 ng/mL Vit D sufficient 20-<30 ng/mL Vit D insufficient >100 ng/mL Potential Toxicity <20 ng/mL Vit D deficient Performing Lab:see note - [facility] LBFREE T3 Reviewed date:04/19/2025 01:08:39 PM Interpretation: Performing Lab: Notes/Report: [facility] ,Free T32.332.91-4.70 pg/mLPerforming Lab:see note - [facility] LB PROF 14(COMP METB) Reviewed date:04/19/2025 01:08:39 PM Interpretation: Performing Lab: Notes/Report: [facility] ,Ryuhqc067471-864 mmol/LPotassium4.53.5-5.1 mmol/TQaesaksj50193-152 mmol/LCarbon Uekpviw40.021.0-32.0 mmol/LAnion Gap11.7Gkgdzqy4296-376 mg/dLBlood Urea Nitrogen 9.06.4-19.3 mg/dLCreatinine0.750.55-1.02 mg/dLEstimated GFR ( Amarilis>60 >=60 mL/min/1.73m 2Estimated GFR (Non- Ilsa>60>=60 mL/min/1.73m 2BUN Creatinine Ratio12.4Mujltkl0.18.5-10.1 mg/dLBilirubin Total1.10.2-1.0 mg/dL Aspartate Amino Mfgxcobpaox955-68 U/LAlanine Nmoisonmupzosmkd1593-64 U/LAlkaline Usladpjivsy4088-812 U/LTotal Protein8.26.4-8.2 g/dLAlbumin Level4.53.4-5.0 g/dL Globulin3.7Albumin Globulin Ratio1.2Performing Lab:see noteML - [facility] LBT4 Reviewed date:04/19/2025 01:08:39 PM Interpretation: Performing Lab: Notes/Report: [facility] ,T4 Thyroxine7.905.40-10.60 ug/dLPerforming Lab:see note - [facility] LBTSH Reviewed date:04/19/2025 01:08:39 PM Interpretation: Performing Lab: Notes/Report: [facility] ,Thyroid Stimulating Hormone3.1780.516-4.130 uIU/mLPerforming Lab:see note - [facility] LBIRON Reviewed date:03/17/2025 01:11:11 PM Interpretation: Performing Lab: Notes/Report: [facility] ,Qbtn952.050.0-170.0 ug/dLPerforming Lab:see note - [facility] LB CBC AUTO DIFF Reviewed date:03/17/2025 01:11:11 PM Interpretation: Performing Lab: Notes/Report: [facility] ,White Blood Count7.24.0-11.0 10 3/uLRed Blood Count5.114.20-5.40 10 6/uL Vglbgwpfrb96.612.0-16.0 g/tFJklppouckv72.236.0-48.0 %Mean Corpuscular Egnetf73.6 81.0-99.0 fLMean Corpuscular Ybaplvzwym31.626.7-34.0 pgMean Corpuscular HGB Conc 32.229.9-35.2 g/dLRed Cell Distribution Width13.111.0-15.0 %Platelet Lkyxj214 150-450 10 3/uLMean Platelet Iwhqqe68.19.5-13.5 fLNeutrophils Percent Auto65.0 43.0-75.0 %Lymphocytes Percent Auto27.720.5-60.0 %Monocytes Percent Auto6.01.7- 12.0 %Eosinophils Percent Auto0.80.9-7.0 %Basophils Percent Auto0.40.2-2.0 % Immature Granulocytes Pct Auto0.10.0-0.5 %Neutrophils Absolute Auto4.71.4-6.5 10 3/uLLymphocytes Absolute Auto2.01.2-3.8 10 3/uLMonocytes Absolute Auto0.40.3-0.8 10 3/uLEosinophils Absolute Auto0.10.0-0.7 10 3/uLBasophils Absolute Auto0.00.0- 0.1 10 3/uLImmature Granulocytes Abs Auto0.010.00-0.03 10 3/uLPerforming Lab:see noteML - [facility] Reason For Referral No Information Medications Medication SIG (Take, Route, Frequency, Duration) Notes Start Date End Date Status Liothyronine Sodium 5 MCG TAKE 1 TABLET BY MOUTH ON AN EMPTY STOMACH ONCE DAILY; Duration: 60 ActiveLevothyroxine Sodium 50 MCGTAKE 1 TABLET BY MOUTH EVERY DAY IN THE MORNING ON EMPTY STOMACH FOR 30 DAYS Orally Once a day; Duration: 90 daysActive Semaglutide-Weight Management 0.25 MG/0.5ML0.5 mL SubcutaneousActiveVitamin D3 50 MCG (2000 UT)1 capsule Orally Once a day; Duration: 30 days4Active Venlafaxine HCl 75 MGTAKE 1 TABLET BY MOUTH EVERY DAY WITH FOOD; Duration: 90 daysActivehydrOXYzine Pamoate 25 MGTAKE 1 CAPSULE BY MOUTH NEEDED TWICE DAILY; Duration: 90Active Immunizations Vaccine Route Administration Date Status Comme nts DTaP (Infanrix) Unknown 07/09/2010 Administered DTP - ghhrusheHdnxbgg68/27/2007dministeredEngerix-B (Peds)Abflnxa7306/20/2005 AdministeredEngerix-B (Peds)Rpfgyny6612/17/2005dministeredEngerix-B (Peds)Unknown 04/26/2006dministeredHIB, unspecified ltdbddsyjhdQffdinf74/16/2006dministered HIB, unspecified ftjjhvxreriHbipofp67/20/2006dministeredHIB, unspecified merspqrttgwYkxndba96/16/2006dministeredHIB, unspecified formulationUnknown 2006dministeredMeningococcal (Menactra)Tqjgzfr9504/09/2018Administered MenQuadfi 0.5mL Single Dose VialIM Fuqboprcvzrho39/14/2023dministeredMMRUnknown 06/18/20066987MwybrusaqohmAZKDyaacyh77/06/2010dministeredPneumococcal (Prevnar 7) - iylkkayjJclujgh32/16/2006dministeredPneumococcal (Prevnar 7) - historicUnknown 2005dministeredPneumococcal (Prevnar 7) - bmgywiroOubqxci72/16/2006 AdministeredPolio Virus, NFBZhjqiev94/23/2006dministeredPolio Virus, IPVUnknown 07/09/2010dministeredTdap (Adacel)Mmyowmp9004/09/2018AdministeredVaricellaUnknown 09/30/2006dministered Social History Tobacco Use: Social History Observation Description Date Details (start date - stop date) Never Smoker NA - NA Tobacco Use/Smoking Question Answer Notes Patient is a nonsmoker Alcohol Screen (Audit-C) Question Answer Notes Did you have a drink containing alcohol in the p ast year? No Hlngum7TwidhogofflcxcExlmtruqKSFRH-B (Standard) Question Answer Notes Did you have a drink containing alcohol in the p ast year? No Oavjbt4ZikfwabdcjluzfNtmtuqeh Problems Problem Type SNOMED Code ICD Code Onset Dates Problem Status W/U Status Risk Notes Problem Vaccination given (887911589) Encounter f or immunization (Z23) ActiveconfirmedProblemAnxiety disorder (647352476)Anxiety disorder, unspecified (F41.9)ActiveconfirmedProblemInsomnia (721186602)Insomnia, unspecified (G47.00) ActiveconfirmedProblemHypothyroid (44696542)Hypothyroid (E03.9)Activeconfirmed ProblemVitamin D deficiency (08461697)Vitamin D deficiency (E55.9)Active confirmedProblemLaboratory test result abnormal (549545707)Abnormal laboratory test (R89.9)ActiveconfirmedProblemHyperinsulinemia (80983543)Hyperinsulinemia (E16.1)ActiveconfirmedProblemMixed anxiety and depressive disorder (141256254) Anxiety and depression (F41.8)ActiveconfirmedProblemDepression (371987329) Depression, unspecified (F32.A)Activeconfirmed Vital Signs Blood pressure diastolic 70 mm Hg 03/10/2025 Sjrmbo14 in03/10/2025MI Lbfwicwlnp93.33 %03/10/2025lood pressure dyfyjdkj524 mm Hg03/10/20253641Spradl207.6 lbs03/10/2025BMI31.89 kg/m203/10/2025 Encounters Encounter Location Date Provider Diagnosis [address] [place] [address] 08/16/2024 Siobhan Louis Hypothyroid E03.9 an d Anxiety disorder, unspecified F41.9 [address] [place] [address] 03/10/2025 Siobhan Louis Wellness examination Z00.00 and Anxiety and depression F41.[address] [place] [address] 06/17/2025 Siobhan Louis Hypothyroid E03.9 [address] [facility] [place] [address] 08/10/2024 Siobhan Louis [address] [place] [address] 08/19/2024Pamelren LouisAnxiety disorder, unspecified F41.[address] [facility] [place] [address]/22/2025Siobhan Louis Anxiety disorder, unspecified F41.9 and Hypothyroid E03.[address] [facility] [place] [address]/06/2025Siobhan Louis [address] [place] [address] 03/17/2025Siobhan LouisVitamin D deficiency E55.9 and Abnormal laboratory [facility]89.[facility] [place] [address] 04/21/2025Siobhan Louis Assessments Encounter Date Diagnosis (ICD Code) Assessment Notes Treatment Notes Treatment Clinical Notes Section Notes 08/16/2024 Hypothyroid (ICD-10 - E03.9) 03/10/2025Wellness examination (ICD-10 - Z00.00)03/10/2025nxiety and depression (ICD-10 - F41.8)increase dose vkjpwvywbff67/16/2025nxiety disorder, unspecified (ICD-10 - F41.9)08/25/2024nxiety disorder, unspecified (ICD-10 - F41.9) 03/17/2025Vitamin D deficiency (ICD-10 - E55.9)06/17/2025Hypothyroid (ICD-10 - E03.9)03/17/2025bnormal laboratory test (ICD-10 - R89.9)08/16/2024nxiety disorder, unspecified (ICD-10 - F41.9) mood good on medication refill continue 08/25/2024Hypothyroid (ICD-10 - E03.9) Plan Of Treatment Pending Test Test Name Order Date CMP (COMPLETE METABOLIC PANEL) 4 HEMOGLOBIN A1C (GLYCO) 11/21/2023 HEMOGLOBIN A1C (GLYCO) 03/10/2025 IRON, TOTAL 03/10/2025 IRON, TOTAL 11/21/2023 LIPID PANEL (CHOL/TRIG/HDL/LDL) 11/21/19 24 LIPID PANEL (CHOL/TRIG/HDL/LDL) 03/10/20 25 CBC WITH DIFF (EXP 06/2025) 11/21/2023 VITAMIN D, 25 LEVEL (TOTAL) 11/21/2023 VITAMIN D, 25 LEVEL (TOTAL) 03/10/2025 Insulin Level 03/10/2025 Insulin Level 11/21/2023 COMPREHENSIVE METABOLIC PROFILE WITH GFR 03/17/2025 THYROID ANTIBODIES 11/24/2023 THYROID PROFILE WITH TSH 08/16/2024 THYROID PANEL (T4/TSH/FREE T3) 4 THYROID PANEL (T4/TSH/FREE T3) THYROID PANEL (T4/TSH/FREE T3) 4 THYROID PANEL (T4/TSH/FREE T3) 4 THYROID PANEL (T4/TSH/FREE T3) 5 THYROID PANEL (T4/TSH/FREE T3) 5 CMP (COMP MET CANTU) w/eGFR CKD-EPI 2024 CBC WITH DIFF 03/10/2025 Insurance Providers Payer Name Payer Address Payer Phone Subscriber Number Group Number Insured Name Patient Relationship to Insured Coverage Start Date Coverage End Date [employer] PPO PLUS LOCAL PLAN [address] [place] [address] [id number] Sandeep Walker - patient is the [id number] 2017 Medical (General) History Medical History History ICD Code Depression F32.A Anxiety F41.9 Insomnia G47.00 Surgical History Surgery Date(Month/Year) ACL reconstruction- left side Hospitalization History Reason Date(Month/Year) denies
--- OUTSIDE RECORDS SUMMARY | 2025-08-02 12:10 | XMS_ITS | Clinical Summary ---
Author Organization [facility] Address [address] [place] [address] Care Team Providers Care Botany Technician Name Role Phone Siobhan Louis MD Unavailable [phone] Unallocated, Noms Provider Primary Care Provi teri Allergies No known active allergies Medications MedicationSigDispense QuantityRefillsLast FilledStart DateEnd DateStatus hydrOXYzine pamoate (Vistaril) 25 MG capsule TAKE 1 CAPSULE BY MOUTH TWICE A DAY NEEDED FOR 30 DAYS04/26/2023ctive venlafaxine (Effexor) 37.5 MG tablet 1 (one) time each day at the same time.04/17/2023ctive Active Problems ProblemNoted DateDiagnosed DateAcute pain of left knee06/06/2023Sprain of anterior cruciate ligament of left knee06/06/2023atellar instability of left knee06/06/2023 Social History Tobacco UseTypesPacks/DayYears UsedDateSmoking Tobacco: NeverSmokeless Tobacco: Never Tobacco Cessation:Counseling Given: Not Answered Alcohol UseStandard Drinks/WeekCommentsNever0 (1 standard drink = 0.6 oz pure alcohol)CommentsUnknownSex and Gender InformationValueDate RecordedSex Assigned at BkqxzGmsikq92/09/2023 12:14 PM EDTLegal LbaKlaadh60/15/2023 7:07 PM EDTGender LcvfisbqNcylql87/09/2023 12:14 PM EDTSexual OrientationStraight 05/12/2023 12:14 PM EDT Last Filed Vital Signs Vital SignReadingTime TakenCommentsBlood Pressure--Pulse--Temperature-- Respiratory Rate--Oxygen Saturation--Inhaled Oxygen Concentration--Lengzd864 kg (236 lb)07/15/2023 3:03 PM ANFAexiny095.6 cm (5' 6 )07/15/2023 3:03 PM ESTBody Mass Index38.0907/15/2023 3:03 PM EST Plan of Treatment Health MaintenanceDue DateLast DoneCommentsInfluenza Vaccine (#1)04/04/2025 07/15/2011, 07/09/2010, 06/23/2007, Additional history existsPneumococcal Vaccine: Pediatrics (0 to 5 Years) and At-Risk Patients (6 to 64 Years)Aged Out No longer eligible based on patient's age to complete this topic Insurance Care Teams Team MemberRelationshipSpecialtyStart DateEnd Date Unallocated, Noms Provider, [address] [place] [address] PCP - Nfpgxdv63/25/23 Siobhan Louis MD [address] [place] [address] Referring PhysicianFamiClinch Memorial Hospital03/05/23
[2025-08-02 13:08] LABS: Free T3 2.84 pg/mL (2.18-3.98); Thyroid Stimulating Hormone 7.125 uIU/mL (0.358-3.740)
== END 2025-08-02 12:07 | disposition home or self-care (01) ==
LOC: LAB 12:08
PROVIDERS: PCP Nurse Practitioner Family; Visit Provider Nurse Practitioner Family
DX: E03.9 Hypothyroidism, unspecified (principal)
CPT/HCPCS: 36415; 84436; 84443; 84481